=== PATIENT | female | born 1960 | race Asian ===

== ENCOUNTER 2019-06-18 23:20 | Emergency (ER) | payer MEDICAID ==
[~2019-06-18] VITALS: Ht 152.4 cm; Wt 49.4 kg
[2019-06-18 23:32] VITALS: Ht 152.4 cm; Wt 49.4 kg
[2019-06-19 00:17] LABS: CALCIUM 9.8 mg/dL (8.5-10.1); CARBON DIOXIDE 27.1 mmol/L (21-32); CREATININE SERUM 1.3 mg/dL (0.6-1.0); POTASSIUM SERUM 3.4 mmol/L (3.5-5.1)
[2019-06-19 00:21] LABS: ALBUMIN 4.6 g/dL (3.4-5.0); BILIRUBIN TOTAL 1.4 mg/dL (0.20-1.00)
[2019-06-19 00:24] LABS: TOTAL PROTEIN, SERUM 9.6 g/dL (6.4-8.2)
[2019-06-19 00:38] LABS: BASOPHIL % 0.2 % (0-2); PLATELET COUNT 216 x10^3mcL (130-400); RED CELL DISTRIBUTION WIDTH 12.4 % (11.5-14.5)
[2019-06-19 02:30] VITALS: BP 110/75
[2019-06-19] MEDS ORDERED: TENOFOVIR DISO300 MG PO (12:16)
== END 2019-06-19 02:30 | disposition home or self-care (01) ==
LOC: ED 23:20
DX: K29.70 Gastritis, unspecified, without bleeding (principal)
CPT/HCPCS: J2270; J2405; J7030; Q0092

== ENCOUNTER 2019-06-19 09:46 | Inpatient (IN) | payer MEDICAID ==
[~2019-06-19] VITALS: Ht 162.6 cm; Wt 49.4 kg
--- NOTE | 2019-06-19 10:15 | NUR ---
PT BIBA FROM HOME FOR C/O CONSTANT ABD PAIN. REPORTS SHE WAS SEEN HERE LAST NIGHT FOR SAME - NO CT SCAN WAS DONE BUT XR WAS DONE. PER PT SHE HAS HAD 4 DAYS OF ABD PAIN TO CENTER AREA DESCRIBING PAIN "BLOATED" FEELING. PT REPORTS CONSTANT N/V IN LAST [address] [facility] ONLY. SON IS AT BEDSIDE
[2019-06-19 10:24] LABS: CALCIUM 9.1 mg/dL (8.5-10.1); CARBON DIOXIDE 23.9 mmol/L (21-32); CREATININE SERUM 1.2 mg/dL (0.6-1.0); POTASSIUM SERUM 3.3 mmol/L (3.5-5.1)
[2019-06-19 10:31] LABS: RED CELL DISTRIBUTION WIDTH 12.4 % (11.5-14.5)
[2019-06-19 10:32] LABS: ALBUMIN 4.1 g/dL (3.4-5.0); BILIRUBIN TOTAL 1.19 mg/dL (0.20-1.00); CHOLESTEROL/HDL RATIO 3.8
[2019-06-19 10:37] LABS: PLATELET COUNT 221 x10^3mcL (130-400)
--- NOTE | 2019-06-19 10:37 | NUR ---
CHAPERONED DR JIANG FOR RECTAL EXAM
[2019-06-19 10:38] LABS: FREE T4 1.08 ng/dL (0.76-1.46); FREE THYROXINE INDEX 2.7 ug/dL (1.4-4.5); T4(THYROXINE) 8.3 ug/dL (4.7-13.3)
[2019-06-19 10:41] LABS: T3 TOTAL 0.71 ng/mL; TOTAL PROTEIN, SERUM 9.2 g/dL (6.4-8.2)
--- NOTE | 2019-06-19 11:49 | NUR ---
DR JIANG SPOKE WITH PT REGARDING TEST RESULTS AND POC OF ADMISSION FOR SMALL BOWEL OBSTRUCTION
[2019-06-19 12:10] LABS: BAND NEUTROPHIL 45 % (0-10); MONOCYTE 13 % (0-7); SEGMENTED NEUTROPHILS 20 % (37-75)
[2019-06-19 12:11] LABS: PLATELET MORPHOLOGY PLATELETS NORMAL; rbc morphology (normal/abnorm) NORMAL (NORMAL)
[2019-06-19] MEDS ORDERED: TENOFOVIR DISO300 MG PO (12:16)
[2019-06-19 12:31] LABS: MAGNESIUM 2.9 mg/dL (1.8-2.4); PHOSPHOROUS 5.8 mg/dL (2.5-4.9)
--- NOTE | 2019-06-19 12:53 | NUR ---
REPORT GIVEN TO INDRA SCHULZ
--- NOTE | 2019-06-19 14:00 | NUR ---
RECEIVED PT FROM ED VIA [facility], CAME IN DUE TO ABDOMINAL PAIN AND CONSTIPATION. AAOX4. DENIES HEADACHE/DIZZINESS. ABLE TO FOLLOW COMMANDS. NO SOB NOTED, LUNG SOUNDS CTA, O2 SAT=96%,RA. W/ LEFT NARE NGT ON LOW INTERMITTENT SUCTION, NOTED YELLOWISH/MILD BROWNISH OUTPUT. ABDOMEN IS MILDLY FIRM, BOWEL SOUNDS ACTIVE. LAST BM WAS 4 DAYS AGO. DENIES ABDOMINAL PAIN AT THIS TIME. VOIDS. RECEIVED PT FROM ED W/ LEVAQUIN ONGOING. IV SITE ON THE RFA IS PATENT AND INTACT. SIDE RAILS UPX2. CALL LIGHT ON REACH. PRIMARY NURSE BRIANNA AT BEDSIDE FOR CONTINUITY OF CARE
[2019-06-19 14:17] VITALS: BP 120/80
[2019-06-19 14:20] VITALS: Ht 162.6 cm; Wt 49.4 kg
--- NOTE | 2019-06-19 14:54 | NUR ---
58 Y/O ARRIVED FROM ER FOR SBO. ALERT ORIENTED. NGT CONNECTED TO LCS ORDERED WITH YELLOWISH WITH SOLID PARTICLES DRAINING. NS AT 100CC/HR INITIATED. SCD IN PLACE. ANJEL LU MADE AWARE OF LACTIC ACID OF 5. WILL CONTINUE TO MONITOR PATIENT.
[2019-06-19 17:28] VITALS: BP 117/76
--- NOTE | 2019-06-19 17:35 | NUR ---
NOTIFIED BY MT THAT TELEMETRY IS IN THE [address] PATIENT SEEN NOT IN ANY DISTRESS. DENIES ANY CHEST PAINS OR SHORTNESS OF BREATH. SEE VITAL SIGNS. HR NOW [address] ST.
[2019-06-19 17:36] VITALS: BP 120/72
--- NOTE | 2019-06-19 18:25 | NUR ---
ASSISTED OOB TO BATHROOM.DENIES ANY DISCOMFORT. NGT TO LCS DRAINED TOTAL OF 150CC YELLOWISH OUTPUT. NO NAUSEA. CALL LEA WITHIN REACH.
--- NOTE | 2019-06-19 18:42 | NUR ---
HR INCREASES TO 138 WALKING TO THE BATHROOM. DENIES ANY PALPITATION. BACK IN BED. HR NOW 119 . MD MACKAY MADE AWARE.
--- NOTE | 2019-06-19 19:40 | NUR ---
RECIEVED PT IN NO ACUTE DISTRESS. AWAKE/ALERT. MANDARIN SPEAKING. TELE #[id number], ST, HR 112. BREATHING E/U. NGT TO L NARE SET TO LOW CONTINUOUS SUCTION WITH YELLOW OUTPUT. BOWEL SOUNDS ACTIVE X 4. CURRENTLY NPO. ABD PAIN IS 4/10, PER MAGO. IV TO RFA, PATENT. BED IN LOWEST POSITION, 2 SIDE RAILS UP, CALL LIGHT IN REACH. INSTRUCTED TO CALL FOR ASSISTANCE.
[2019-06-19 21:15] VITALS: BP 123/85
--- NOTE | 2019-06-20 00:45 | NUR ---
RESTING IN BED WITH EYES CLOSED. BREATHING E/U. NO ACUTE DISTRESS NOTED. WILL CONTINUE TO MONITOR.
[2019-06-20 01:12] LABS: UA SPECIFIC GRAVITY 1.025 (1.005-1.035); microscopic required? YES; urine erythrocyte 2+ (NEGATIVE)
[2019-06-20 05:52] VITALS: BP 128/85
--- NOTE | 2019-06-20 06:38 | NUR ---
NO ACUTE DISTRESS NOTED. NGT TO L NARE SET TO LOW INTERMITTENT SUCTION. 550 ML YELLOW OUTPUT OVERNIGHT. NO C/O ABD PAIN/NAUSEA. WILL ENDORSE TO ONCOMING RN.
[2019-06-20 06:53] LABS: CARBON DIOXIDE 28.6 mmol/L (21-32); CHLORIDE SERUM 104 mmol/L (98-107); CREATININE SERUM 0.8 mg/dL (0.6-1.0); GFR1 > 60 mL/min; GLUCOSE SERUM 146 mg/dL (74-106); POTASSIUM SERUM 3.7 mmol/L (3.5-5.1); SODIUM SERUM 141 mmol/L (136-145)
--- NOTE | 2019-06-20 07:45 | NUR ---
PATIENT IS RESTING IN BED, NO ACUTE DISTRESS NOTED AT THIS TIME. FAMILY AT BEDSIDE. TELE MONITOR IN PLACE. LUNG SOUNDS CTA, ON ROOM AIR. NGT TO LOW INTERMITTENT SUCTION TO LEFT NARE. PATIENT IS AMBULATORY. NS IV INFUSING TO RFA AT 1000ML/HR, IV SITE CDI&PATENT, NO S/S OF INFILTRATION. CALL LIGHT WITHIN REACH, BED IN LOW POSITION, WILL CONTINUE TO MONITOR FOR CHANGES.
[2019-06-20 08:44] VITALS: BP 117/87
--- NOTE | 2019-06-20 10:45 | NUR ---
NGT TO LEFT NARE, ON LIS, 875ML OF DARK GREEN/BROWN OUTPUT NOTED, CANISTER WAS CHANGED AT THIS TIME. PATIENT DENIES PAIN. WILL CONTINUE TO MONITOR PATIENT.
[2019-06-20 11:35] LABS: BASOPHIL % 0.2 % (0-2); PLATELET COUNT 186 x10^3mcL (130-400); RED CELL DISTRIBUTION WIDTH 12.1 % (11.5-14.5)
[2019-06-20 14:01] VITALS: BP 125/83
--- NOTE | 2019-06-20 16:35 | NUR ---
PATIENT IS SLEEPING IN BED, NO ACUTE DISTRESS NOTED AT THIS TIME. PATIENT DENIES PAIN, NAUSEA, AND VOMITTING. ALL NEEDS MET AT THIS TIME. PATIENT AWAITING PHYSICIAN CONSULT. WILL CONTINUE TO MONITOR FOR CHANGES.
[2019-06-20 17:36] VITALS: BP 114/78
--- NOTE | 2019-06-20 18:29 | NUR ---
PATIENT RESTING IN BED, NO ACUTE CHANGES NOTED THROUGH OUT SHIFT, PATIENT IS STABLE. PATIENT DENIES N,V. DENIES PAIN AT THIS TIME. NGT TO LEFT NARE ON LOW INTERMITTENT SUCTION, 250ML OUTOUT NOTED AT THIS TIME. NS IV INFUSING TO RFA AT 100ML/HR, IV SITE CDI & PATENT, NO S/S OF INFILTRATION. CALL LIGHT WITHIN REACH, BED IN LOW POSITION. WILL CONTINUE TO MONITOR & ENDORSE TO NIGHT RN.
--- NOTE | 2019-06-20 20:03 | NUR ---
EYES CLOSED, AROUSABLE TO VERBAL STIMULUS, AAO X4 VERBAL, DENIES PAIN NO DISTRESS LUNGS CTA, NGT IN SITU LT NARES TO LOW INTERMITTENT SUCTION, WORKING WELL, GREENISH BROWN RETURNED, PT DENIES NAUSEA OR VOMITING, PT ADMITTED FOR SBO, NO BM DURING THIS ASSESSMENT, HYPOACTIVE BS X4 QUADS, IVF NS INFUSING @ 100CC/HR IV ACCESS @ RFA PATENT NON INFIL, SCD'S OFF AT THIS TIME PER PT'S REQUEST, SHIFT ASSESSMENT DONE, CALL LIGHT AT REACH, STILL WAITING FOR GI MD DR CONNOR FOR CONSULT, WILL CONT TO MONITOR.
[2019-06-20 21:20] VITALS: BP 119/79
--- NOTE | 2019-06-20 21:42 | NUR ---
PT C/O NAUSEA AND FELT BLOATED, RESOURCE NURSE UTILIZED FOR TRANSLATION, DENIES PAIN, NO DISTRESS, NGT INPLACED, ZOFRAN IVP GIVEN PER PRN ORDER, CONT TO MONITOR.
--- NOTE | 2019-06-20 22:32 | NUR ---
DR CONNOR GI CALLED UPDATED RESIDENT'S CONDITION, MD ORDERED STAT KUB AND A FOLLOW THROUGH IN AM WITH GASTROGRAFIN, ALSO WANTED PT TO LOW CONTINUOUS SUCTION, ALL TO/RB ORDERS CARRIED OUT, DR CONNOR WILL COME TONIGHT TO CHECK THE PT, THE SON CAME FOR VISIT, AND HE WILL WAIT FOR DR CONNOR.
--- NOTE | 2019-06-20 23:11 | NUR ---
DR CONNOR, SURGEON, CAME CHECKED AND EXAMINED THE PT, KUB DONE AT THE SAME TIME AND SURGEON LOOK UP THE RESULT, WILL DO ANOTHER KUB - UPPER GI WITH GASTROGRAFIN IN AM AND WILL DECIDE IF PT NEEDED A SURGERY, DR CONNOR SPOKE TO THE SON AND THE PATIENT, RESIDENT ON DUTY DR MACKAY AND DR JUAREZ AWARE OF THE PLAN DISCUSSED BY DR CONNOR RE PT'S STATUS.
[2019-06-21 06:04] LABS: BASOPHIL % 0.1 % (0-2); PLATELET COUNT 175 x10^3mcL (130-400); RED CELL DISTRIBUTION WIDTH 12.9 % (11.5-14.5)
--- NOTE | 2019-06-21 06:11 | NUR ---
SLEPT INTERMITTENT DURING THE SHIFT, NO NAUSEA OR VOMITING, DENIES PAIN, NGT TO LOW CONTINUOUS SUCTION PUTTING OUT 250CC FROM NGT, GREENISH BROWN COLOR, REMAINED NPO, AM ATB IV ADMINISTERED ORDERED, NO ADV REACTION, SCHED FOR UPPER GI SMALL BOWEL FOLLOW THROUGH THIS MORNING FOLLOWED UP C/O SUMMER, RADIOLOGIST WILL BE HERE BETWEEN 7 TO 7:30 AM, WILL ENDORSE TO INCOMING SHIFT FOR F/U CARE.
[2019-06-21 06:27] LABS: CALCIUM 8.3 mg/dL (8.5-10.1); CARBON DIOXIDE 25.8 mmol/L (21-32); CHLORIDE SERUM 109 mmol/L (98-107); CREATININE SERUM 0.7 mg/dL (0.6-1.0); GFR1 > 60 mL/min; GLUCOSE SERUM 118 mg/dL (74-106); POTASSIUM SERUM 3.3 mmol/L (3.5-5.1); SODIUM SERUM 146 mmol/L (136-145)
--- NOTE | 2019-06-21 08:04 | NUR ---
AT 0720 - RECEIVED PATIENT FROM NIGHT NURSE. AWAKE, ALERT AND APPEARS ORIENTED. FAMILY MEMBER AT BEDSIDE. RADIOLOGY STAFF HERE TO TAKE PATIENT FOR SB SERIES. IV SALINE LOCKED AND NG TUBE DISCONNECTED FROM SUCTION. PAIENT TAKEN TO RADIOLOGY.
[2019-06-21 09:24] VITALS: BP 134/88
--- NOTE | 2019-06-21 12:58 | NUR ---
AT 0900 - PATIENT BACK IN ROOM. PER MARINE PHOTOGRAPHER, PATIENT NOT TO BE CONNECTED TO SUCTION AT THIS TIME UNTIL ALL SERIES X-RAYS HAVE BEEN TAKEN. NEXT SCHEDULED X-RAY IS AT 0930 FOLLOWED BY ONE AT 1130. 40 MEQ K-RIDE COMMENCED. AT 1020 - PATIENT C/O NAUSEA. UNABLE TO CONNECT TO SUCTION AT THIS TIME. PATIENT MEDICATED WITH ZOFRAN PER EMAR. AT 1215 - - PATIENT CONTINUES TO HAVE NAUSEA AND IS SPITTING / VOMITING YELLOW BILARY FLUID. SPOKE WITH RADIOLOGY. PATIENT STIL NEED ANOTHER X-RAY AT 5 OR 6 HR ROLAND, DEPENDING ON RADIOLOGIST'S RECOMMENDATION. NG TUBE NEEDS TO REMAIN CLAMPED UNTIL ALL X-RAYS HAVE BEEN COMPLETED.
--- NOTE | 2019-06-21 13:14 | NUR ---
CALLED TO AND RELAYED THE RESULTS OF THE UGI W/ SBFT AND ASKED IF HE WANTS TO READ THE WHOLE REPORT AND WANTS ONLY THE IMPRESSION OF THE REPORT AND READ IT TO HIM. HE ORDERED TO UNCLAMPED NGT TO CONTINOUS SUCTION AND KUB AT 0600 TOMORROW.
--- NOTE | 2019-06-21 14:01 | NUR ---
AT 1315 - RECEIVED ORDER TO RESUME NG TUBE CONTINUOUS LOW SUCTION AND REPEAT KUB IN AM. BEV STEVENS SPOKE WITH DR CONNOR. AT 1335 - PATIENT HAD 450 DARK GREEN ASPIRATE WITHIN 20 MIN OF CONNECTIONG BACK TO SUCTION. AT 1345 - PATIENT SITTING IN CHAIR. REPORTS FEELING BETTER. NO FURTHER VOMITING. FAMILY AT BEDSIDE.
--- NOTE | 2019-06-21 15:19 | NUR ---
PATIENT CONTINUES TO HAVE LARGE AMOUNTS OF DARK GREEN ASPIRATE FROM NG TUBE. NO C/O NAUSEA SINCE TUBE RECONNECTED TO SUCTION. TOTAL OF 800 ML SINCE RESUMING SUCTION.
[2019-06-21 16:44] VITALS: BP 129/79
--- NOTE | 2019-06-21 18:18 | NUR ---
AWAKE, ALERT AND ORIENTED. VSS AND WNL. AFEBRILE. IV INFUSING NS AT 100 ML/HR. K-RIDER CLOSE TO COMPLETION. NO C/O PAIN. NO CAUSEA OR VOMITING AT THIS TIME. NG TUBE REMAINS ON LOW INTERMITTENT SUCTION WITH LARGE AMOUNTS OF DARK GREEN ASPIRATE = TOTAL OF 1700 ML THIS SHIFT. REMAINS NPO. AMBULATES TO BATHROOM WITH ASSISTANCE. FAMILY AT BEDSIDE. WILL ENDORSE CARE TO NIGHT NURSE.
--- NOTE | 2019-06-21 19:35 | NUR ---
RECIEVED PATIENT AT START OF SHIFT AWAKE AND ALERT, FAMILY AT BEDSIDE.MED-SURG PATIENT. NO SOB ON RA, LUNGS CTAB. NG TUBE IN PLACE CONTECTED TO CONTINUOUS LOW SUCTION DRAINING DARK GREEN FLUID. PATIENT DENIES NAUSEA. BS ARE ACTIVE IN ALL 4 QUADRANTS. ABDOMEN IS SOFT BUT DISTENDED. PATIENT HASNT HAD BM SINCE 06/17 (5 DAYS). IV TO RFA INFUSING WITHOUT ERYTHEMA OR INFILTRATION. BED LOCKED AND IN LOWETS POSIITON. CALL LIGHT WITHIN REACH.
[2019-06-21 20:17] VITALS: BP 123/75
--- NOTE | 2019-06-21 20:47 | NUR ---
PO MEDS HELD DUE TO NPO STATUS.
--- NOTE | 2019-06-22 04:08 | NUR ---
PATIENT REPORTED HAVING THREE SMALL BOWEL MOVEMENTS. PATIENT FLUSHED BM BEFORE VISUALIZATION. NG TUBE CONTINUES TO HAVE DARK GREEN DRAINAGE ON CONTINUOUS LOW SUCTION. IV INFUSING WELL WITHOUT ERYTHEMA OR INFILTRATION. CALL LIGHT WITHIN REACH.
[2019-06-22 05:49] VITALS: BP 126/76
--- NOTE | 2019-06-22 06:12 | NUR ---
PATIENT'S NG TUBE PUT OUT 300 MLS TOTAL OF DARK GREEN FLUID. PATIENT DENIES PAIN/NAUSEA. IV IS PATENT AND INTACT. BED LOCKED AND IN LOWEST POSIITON. CALL LIGHT AND BEDSIDE TABLE WITHIN REACH. WILL ENDORSE CARE TO MORNING NURSE.
--- NOTE | 2019-06-22 07:32 | NUR ---
PATIENT ALERT AND ORIENTED, ABLE TO MAKE NEEDS KNOWN AND FOLLOW COMMANDS. BREATHING E/U, LUNGS CTA, NGT TO LT NARE LOW CONT SUCTION, DARK GREEN OUTPUT. BOWEL SOUNDS HYPOACTIVE, ABD SOFT. NO COMPLAINTS OF PAIN AT THIS TIME. SKIN INTACT. PERIPHERAL PULSES PALPALBE, NO EDEMA. IV ACCESS TO RFA SITE WNL, NO REDNESS/SWELLING. CALL LIGHT WITHIN REACH.
--- NOTE | 2019-06-22 08:15 | NUR ---
SON NOW AT BEDSIDE, PATIENT SITTING UP ON CHAIR. PER SON PATIENT DENIES ABD PAIN OR NAUSEA AT THIS TIME. REPORTS HAD BM LAST NIGHT AND AGAIN THIS AM BEFORE XRAY KUB FOLLOW UP DONE. 3-4 SMALL SOLID STOOLS, DARKISH BROWN/BLACK. NGT IN PLACE, TAPE REINFORCED TO STABILIZE. WILL CONT TO MONITOR.
[2019-06-22 08:23] VITALS: BP 128/87
[2019-06-22 09:37] LABS: BASOPHIL % 0.1 % (0-2); PLATELET COUNT 206 x10^3mcL (130-400); RED CELL DISTRIBUTION WIDTH 12.8 % (11.5-14.5)
[2019-06-22 09:39] LABS: CARBON DIOXIDE 23.9 mmol/L (21-32); CHLORIDE SERUM 115 mmol/L (98-107); CREATININE SERUM 0.8 mg/dL (0.6-1.0); GFR1 > 60 mL/min; GLUCOSE SERUM 105 mg/dL (74-106); POTASSIUM SERUM 3.6 mmol/L (3.5-5.1); SODIUM SERUM 152 mmol/L (136-145)
--- NOTE | 2019-06-22 10:04 | NUR ---
DR CONNOR PAGED AND MADE AWARE OF XR KUB FOLLOW UP RESULT THIS MORNING. ALSO MADE HIM AWARE THAT PATIENT HAD 2 SMALL BOWEL MOVEMENTS PRIOR TO XRAY AND THAT OUTPUT ON NGT WAS 1700ML LAST NIGHT AND 300ML THIS MORNING. PER DR CONNOR, CONTINUE NGT LOW CONT SUCTIONING. CHARGE NURSE MADE AWARE.
--- NOTE | 2019-06-22 12:30 | NUR ---
OFFERED HYGEINE ASSISTANCE, SHOWER/CONDITIONER CAP PROVIDED AND CLEANSED/BRUSHED HAIR. NEW GOWN PROVIDED. PATIENT SITTING UP ON CHAIR NOW. NO SIGN OF ACUTE DISTRESS.
[2019-06-22 12:38] LABS: MAGNESIUM 2.4 mg/dL (1.8-2.4)
--- NOTE | 2019-06-22 14:40 | NUR ---
PATIENT AMBULATING IN HALLWAY ACCOMPANIED BY SON, NGT CLAMPED. AMB X2 LAPS. NO SIGN OF ACUTE DISTRESS.
[2019-06-22 17:04] VITALS: BP 104/59
--- NOTE | 2019-06-22 18:05 | NUR ---
PATIENT REPORTS BLOATING TO ABD, STATES PASSED GAS THIS AM BUT SLOWED DOWN, STATES BURPING OCCASIONALLY. ABD SOFT/DISTENDED. STATES MILD DISCOMFORT UPON DEEP PALPATION. NGT TO LT NARES IN PLACE, 550ML OUTPUT FOR DAY SHIFT, DARK GREEN, LOW CONTINUOUS SUCTIONING. HAD X2 BM'S TODAY SMALL SOLID STOOLS. NO RESP DISTRESS ON RA. IV SITE WNL. WILL CONT TO MONITOR AND ENDORSE TO NOC NURSE.
--- NOTE | 2019-06-22 19:20 | NUR ---
CHIQUIS MCKEON GAVE PATIENT ZOFRAN PER EMAR FOR NAUSEA.
--- NOTE | 2019-06-22 19:30 | NUR ---
PATIENT REPORTING BLOATING AND FULLNESS. ABDOMEN FEELS SOFT BUT DISTENDED. NG TUBE IS ON CONTINUOUS LOW SUCTION DRAINING GREEN OUTPUT. IV IS INFUSING WITHOUT ERYTHEMA OR INFILTRATION. PATIENT DENIES PAIN. NO SOB ON RA. CALL LIGHT WITHIN REACH.
[2019-06-22 20:29] VITALS: BP 122/75
--- NOTE | 2019-06-22 21:00 | NUR ---
2ND IV STARTED ON LEFT FOREARM, 20G FOR TPN ANDMINISTRATION.
--- NOTE | 2019-06-23 01:59 | NUR ---
PATIENT GIVEN ZOFRAN PER EMAR FOR NAUSEA. NG TUBE CONTINUES TO DRAIN GREEN FLUID. 300 OUT SO FAR THIS SHIFT. ABDOMEN REMAINS DISTENDED AND SOFT. BOTH IVS INFUSING WITHOUT ERYTHEMA OR INFILTRATION. CALL LIGHT WITHIN REACH.
--- NOTE | 2019-06-23 05:54 | NUR ---
PATIENT GIVEN ZOFRAN PER EMAR FOR NAUSEA. NG TUBE PRODUCED 580 MLS OF GREEN DRAINAGE THIS SHIFT ON LOW CONTINUOUS SUCTION. ABDOMEN REMAINS DISTENDED AND SOFT. BS ARE HYPOACTIVE THIS MORNING. BOTH IVS INFUSING WITHOUT ERYTHEMA OR INFILTRATION. BED LOCKED AND IN LOWEST POSIITION. CALL LIGHT WITHIN REACH.
[2019-06-23 06:05] VITALS: BP 119/79
--- NOTE | 2019-06-23 06:15 | NUR ---
WILL ENDORSE CARE TO DAYSHIFT NURSE.
[2019-06-23 06:49] LABS: BASOPHIL % 0.2 % (0-2); PLATELET COUNT 201 x10^3mcL (130-400); RED CELL DISTRIBUTION WIDTH 12.8 % (11.5-14.5)
[2019-06-23 07:04] LABS: CALCIUM 8.4 mg/dL (8.5-10.1); CARBON DIOXIDE 25.5 mmol/L (21-32); CHLORIDE SERUM 117 mmol/L (98-107); CREATININE SERUM 0.7 mg/dL (0.6-1.0); GFR1 > 60 mL/min; GLUCOSE SERUM 163 mg/dL (74-106); POTASSIUM SERUM 3.2 mmol/L (3.5-5.1); SODIUM SERUM 154 mmol/L (136-145)
[2019-06-23 07:22] LABS: MAGNESIUM 2.3 mg/dL (1.8-2.4); PHOSPHOROUS 2.9 mg/dL (2.5-4.9)
--- NOTE | 2019-06-23 07:35 | NUR ---
RECEIVED PT IN BED A/A/OX4 RESP EVEN AND UNLABORED WITH CLEAR BS BILAT. DENIES ANY CP/PRESSURE. NO EDEMA NOTED WITH IVF TO RFA NAD PPN TO LFA AT 35ML/HR. ABD SOFT, SLIGHTLY DISTENDED WITH +BS. PT PASSING GAS AND BURPING. NGT TO LT NARE WITH LOW CONT SUCTION WITH GREENISH BILE DRAINAGE. STRICT NPO. AMBULATORY AND VOIDING FREELY. CALL LIGHT IN REACH NEEDS ATTENDED TO.
[2019-06-23 07:42] VITALS: BP 132/78
--- NOTE | 2019-06-23 11:00 | NUR ---
CHECK IV SITES BOTHE PATENT WITH NO S/SX OF INFILTRATION.
--- NOTE | 2019-06-23 14:45 | NUR ---
PT C/O NAUSEA, MEDICATED WITH ZOFRAN IVP PER EMAR. CALL LIGHT IN REACH WITH CONT LOW SUCTION.
--- NOTE | 2019-06-23 16:20 | NUR ---
CHECKED IV SITES BOTH PATENT AND FREE OF S/SX OF INFILTRATION.
[2019-06-23 16:43] VITALS: BP 129/77
--- NOTE | 2019-06-23 18:10 | NUR ---
PT AMBULATED DOWN THE HALLWAY. TOLERATED ACTIVITY WELL. CALL LIGHT IN REACH NEEDS ATTENDED TO.
--- NOTE | 2019-06-23 19:45 | NUR ---
RECEIVED REPORT FROM AM NURSE. PT LAYING DOWN IN BED. PT AAOX4, CHINISE SPEACKING ONLY. FOLLOWS COMMANDS. ABLE TO MAKE NEEDS KNOWN. MED-SURG. DENIES CP/PRESSURE AT THIS TIME. PALPABLE PULSES TO ALL EXTREMITIES. NO EDEMA NOTED. LUNG SOUNDS CTA ON RA. BREATHING EVEN AND UNLABORED. NO ACUTE DISTRESS NOTED. ABD SOFT AND DISTENDED. STATED PASSING GAS. HYPOACTIVE BOWEL SOUNDS X4 QUAD. LAST BM 06/22/19. DENIES N/V AT THIS TIME. NGT TO LEFT NARE TO LOW CONT SUCTION, DRAINING GREEN FLUID. VOIDS FREELY BRP. GENERALIZED WEAKNESS. AMBULATORY. TPN RUNNING TO LFA AT 35ML/HR. SITE FREE FROM REDNESS AND SWELLING. D5 1/2 NS RUNNING TO RFA AT 40ML/HR. SITE FREE FROM REDNESS AND SWELLING. BED AT LOWEST SETTING. SIDE RAILS X2 UP. CALL LIGHT WITHING REACH. WILL CONTINUE TO MONITOR.
[2019-06-23 21:03] VITALS: BP 117/79
--- NOTE | 2019-06-23 22:30 | NUR ---
PT TEMP 99.8, AND C/O ABD PAIN 03/28. RECEIVED ORDER FOR TORADOL PRN. MEDICATED WITH TORADOL PRN PER JAN. WILL CONTINUE TO MONITOR.
--- NOTE | 2019-06-24 | NUR ---
REASSESSED TEMP. CURRENT TEMP 98.9. PT STATES RELIEF FROM PAIN. RATES PAIN 12/29. WILL CONTINUE TO MONITOR.
[2019-06-24 05:45] VITALS: BP 130/81
--- NOTE | 2019-06-24 06:27 | NUR ---
PT STAYED AWAKE MOST OF THE NIGHT. BREATHING EVEN AND UNLBORED. SHE CALLS TO NURSE ABOUT EVERY 1HR TO CHECK NGT. WANTS TO MAKE SURE ITS SUCTIONING. NO ACUTE DISTRESS NOTED. NG TO LEFT NARE TO LOW CONT SUCTION. DRAINING GREEN FLUID. TPN RUNNING TO LFA AT 45ML/HR. SITE FREE FROM REDNESS AND SWELLING. IV TO RFA RUNNING D5 1/2 NS AT 40ML/HR. SITE FREE FROM REDNESS AND SWELLING. BED AT LOWEST SETTING. SIDE RAILS X2 UP. CALL LIGHT WITHING REACH. WILL ENDORSE CARE TO AM NURSE.
[2019-06-24 06:46] LABS: BASOPHIL % 0.3 % (0-2); PLATELET COUNT 197 x10^3mcL (130-400)
[2019-06-24 07:06] LABS: CALCIUM 8.4 mg/dL (8.5-10.1); CARBON DIOXIDE 28.6 mmol/L (21-32); CHLORIDE SERUM 116 mmol/L (98-107); CREATININE SERUM 0.7 mg/dL (0.6-1.0); GFR1 > 60 mL/min; GLUCOSE SERUM 154 mg/dL (74-106); POTASSIUM SERUM 3.3 mmol/L (3.5-5.1); SODIUM SERUM 151 mmol/L (136-145)
--- NOTE | 2019-06-24 07:40 | NUR ---
RECEIVED PT IN BED A/A/OX4 DENIES ALLRED. RESP EVEN AND UNLABORED WITH CLEAR BS BILAT. DENIES ANY SOB/CP/PRESSURE AT THIS TIME. NO EDEMA NOTED. IV TO LFA WITH PPN AT 45ML/HR. ABD SOFT, DISTENDED WITH ACTIVE BS X4. DENIES ANY N/V AT THIS TIME. REPORTS SMALL BM YESTERDAY NONE TODAY. NGT TO LT NARE AT LOW CONT SUCTION WITH GENISH BILE ABOUT 200ML IN CANISTER THIS AM. PT IS NPO. AMBULATORY. INDIPENDENT OF B+B. CALL LIGHT IN REACH NEEDS ATTENDED TO.
[2019-06-24 08:19] VITALS: BP 122/83
[2019-06-24 08:25] LABS: MAGNESIUM 2.3 mg/dL (1.8-2.4); PHOSPHOROUS 3.3 mg/dL (2.5-4.9)
--- NOTE | 2019-06-24 10:11 | NUR ---
PHARMACIST HAD CALLED TO F/U ON PT'S STATUS MADE AWARE TO CONT TPN PT TO HAVE KUB THIS AM TO F/U ON SBO. PHARMACIST REQUEST TO COMFIRM THAT PROPERTY ASSISTANT WAS AWARE THAT TENOFOVIR HAS BEEN HELD D/T NPO STATUS. PROPERTY ASSISTANT MADE AWARE AND STATED SHE COULD NOT CHANGE STATUS AT THIS TIME AND ITS OK FOR MEDICATION TO BE HELD AT THIS TIME.
[2019-06-24 11:53] VITALS: BP 115/74
--- NOTE | 2019-06-24 15:00 | NUR ---
NOTED AREA ABOVE LFA IV SITE WITH PPN INFUSING WITH SLIGHT SWELLING. PT DENIED ANY DISCOMFORT TO AREA. PT PREVENT FURTHER IRRITATION TO SITE PPN WAS SWITCHED TO RFA IV SITE AND IVF PLACED ON LFA. PRIOR IV SITE WAS FLUSED AND PT REPORTED IRRITATION WITH INFUSING. IVF STOPPED AND IV WAS D/C'D. NEW IN INSERTED BY RESOURCE NURSE 20G TO RAC. IVF RESUMED AT THIS SITE. CONT TO MONITOR.
--- NOTE | 2019-06-24 15:15 | NUR ---
SKIN ASSESSMENT DONT TO PT. NO OPEN ACTIVE WOUND NOTED. PRIMARY RN NOTIFIED AND CONFIRMED THAT PT. SKIN IS CLEAR.
[2019-06-24 16:45] VITALS: BP 101/67
--- NOTE | 2019-06-24 17:25 | NUR ---
PT C/O ABD PAIN FROM DISTENSION. MEDICATED WITH TORADOL IVP ORDERED. WILL CONT TO MONITOR.
--- NOTE | 2019-06-24 18:39 | NUR ---
PT RESTING COMFORTABLY AT THIS TIME. REPORTED IMPROVEMENT WITH PAIN AND HAD LESS EPISODES OF NAUSE DURING THE SHIFT, WITH 700ML GRENISH BILE OUTPUT FROM NGT. PPN TO RFA SITE FREE OF ANY S/SX OF INFILTRATION. IVF TO RAC. CALL LIGHT IN REACH NEEDS ATTENDED TO.
--- NOTE | 2019-06-24 19:05 | NUR ---
RECEIVED PT FROM PREVIOUS SHIFT NURSE. PT AOX4, DENIES CP/PRESSURE. MED SURG PT, DENIES CP/PRESSURE. DENIES SOB/DIFFICULTY BREATHING, ON RA. BOWEL SOUNDS ACTIVE, DENIES ABD PAIN/DISCOMFORT AT THIS TIME. NG TUBE TO L. NARE CONNECTED TO LOW CONTINUOUS SUCTION. IV TO RAC, RFA INTACT AND PATENT. BED IN LOWEST POSITION. CALL LIGHT WITHIN REACH. WILL CONTINUE TO MONITOR.
[2019-06-24 20:14] VITALS: BP 115/71
--- NOTE | 2019-06-25 03:19 | NUR ---
PT RESTING IN BED. RR EVEN AND UNLABORED. IN NO ACUTE DISTRESS. CALL LIGHT WITHIN REACH. BED IN LOWEST POSITION. WILL CONTINUE TO MONITOR.
[2019-06-25 04:58] VITALS: BP 103/71
[2019-06-25 06:21] LABS: BASOPHIL % 0.1 % (0-2); PLATELET COUNT 201 x10^3mcL (130-400); RED CELL DISTRIBUTION WIDTH 12.9 % (11.5-14.5)
[2019-06-25 06:41] LABS: CALCIUM 8.6 mg/dL (8.5-10.1); CARBON DIOXIDE 25.1 mmol/L (21-32); CHLORIDE SERUM 111 mmol/L (98-107); CREATININE SERUM 0.6 mg/dL (0.6-1.0); GFR1 > 60 mL/min; GLUCOSE SERUM 123 mg/dL (74-106); MAGNESIUM 2.3 mg/dL (1.8-2.4); PHOSPHOROUS 3.7 mg/dL (2.5-4.9); POTASSIUM SERUM 3.5 mmol/L (3.5-5.1); SODIUM SERUM 147 mmol/L (136-145)
--- NOTE | 2019-06-25 07:15 | NUR ---
RECEIVED PATIENT FROM [facility] NURSE, PATIENT ALERT/ORIENTED, REQUESTING TO USE RESTROOM. NGT CLAMPED. PATIENT AMBULATES WITH STEADY GAIT TO RESTROOM. NO SIGN OF ACUTE DISTRESS, WILL CONT TO MONITOR/ASSESS.
--- NOTE | 2019-06-25 08:00 | NUR ---
SON AT BEDSIDE, A/OX4, ABLE TO MAKE NEEDS KNOWN, FOLLOW COMMANDS. DENIES HEADACHE OR CHEST PAIN. LUNGS CTA, NO RESP DISTRESS NOTED ON RA, BREATHING E/U. BOWEL SOUNDS ACTIVE TO UPPER LOBES, HYPO TO LOWER LOBES. ABD SOFT, DENIES NAUSEA, DENIES FEELING BLOATED AT THIS TIME. NGT IN PLACE TO LT NARES, LOW CONTINUOUS SUCTIONING, DARK GREEN OUTPUT. PERIPHERAL PULSES PALPABLE, NO EDEMA. SKIN INTACT. IV ACCESS SITES TO RAC RUNNING D5W AT 20ML/HR, AND RFA RUNNING TPN AT 55ML/HR, INFUSING WELL, SITES WNL. CALL LIGHT WITHIN REACH. WILL CONT TO MONITOR.
[2019-06-25 08:08] VITALS: BP 105/73
--- NOTE | 2019-06-25 13:45 | NUR ---
PATIENT REQUESTED FOR ASSISTANCE, FOUND IN BED WITH BM ACCIDENT/LEAK. PATIENT CLEANSED AND LINENS/GOWN CHANGED. SMALL LOOSE STOOL. 10 MINUTES LATER PATIENT AMBULATED TO RESTROOM TO HAVE ANOTHER BM. SMALL AMOUNT LOOSE/WATERY STOOL. DENIES DIARRHEA OR ABD DISCOMFORT. ABDOMEN SOFT AND NON-TENDER AT THIS TIME. NGT RESUMED TO LOW-CONT SUCTIONING. WILL CONT TO MONITOR.
--- NOTE | 2019-06-25 15:15 | NUR ---
Initial Nutrition Assessment: 241/A RAYMOND CHEN IA HR Dx: SBO PMHx: Hepatitis B PSHx: no significant Hx Labs: (06/25) NA 147H, BG 123H Meds: Colace, D 10%, D 5%, Flagyl, humulin, morphine, zofran, zosyn Diet: PPN @ 55ml/hr, D 12%, AA 3%, 20% intralipid (120 ml) PO Intake: NPO Ht: 162.56 cm (64") Wt: 49 kg (108#) BMI: 18.7 kg/m2 Bed scale: 49.2 kg IBW: 120# (55 kg) %IBW: 90 UBW: unable to access Age: 58/F Food Allergies: NKFA Skin: intact Flaco: 21 Edema: none GI: Last BM: 06/23 Per H&P, Pt is a 58-year-old Female who presents to the ED for evaluation of a 4 day history of diffuse, non-radiating, abdominal pain. RDN Visit (06/25): Patient did not speak Serbian. Per RN Lance, pt had 500cc output from NGT suction last night and currently had 700cc. KUB on (06/25) shows small bowel dilatation with no changes from previous KUB. Per progress note (06/24), Patient continues to have abdominal distention with with NGT to continuous suction with 900 cc out last night. Patient also continues on PPN dosed via pharmacy. FNS received wound care consult on 06/24, per wound care note, pt. does not have any open active wound. Problem with: N/V/D/C: no Problems with: Chewing/Swallowing: N/A Current appetite: N/A Recent wt change: none %wt change: N/A Vitamin/Supplement use: N/A Special diet at home: N/A Physical activity: N/A Nutrition education given: N/A as pt. on TPN. Food-drug interactions: NPO Education given: N/A Estimated Nutritional Needs Based on body weight 49 kg Energy: 4304-2616 kcal/d (25-30 kcal/kg) Protein: 49-59 g/d (1.0-1.2 g/kg) - preserve LBM Fluid: 0484-8036 ml/d (1 ml/kcal) or per doctor Nutrition Diagnosis 1. Inadequate parenteral nutrition infusion related to low infusion rate as evidenced by current rate not meeting estimated calorie and protein needs. Intervention 1. Recommend changing PPN to TPN in order to increasing concentration of dextrose and increase the rate while maintaining osmolality. Monitor/Evaluate Goal: TPN intake at least 75% of estimated needs Monitor: TPN intake, Labs, GI function F/U in 2-3 days as high risk 06/27-
--- NOTE | 2019-06-25 15:16 | NUR ---
1. Recommend changing PPN to TPN in order to increasing concentration of dextrose and increase the rate while maintaining osmolality.
[2019-06-25 16:34] VITALS: BP 104/70
--- NOTE | 2019-06-25 17:23 | NUR ---
PATIENT REPORTS HAVING ABOUT 20 BM'S, CURRENTLY ON THE PHONE LINE WITH SON. INFORMED SON THE SUPPOSITORY ORDERED BY TREER WAS NEVER GIVEN DUE TO PATIENT ALREADY STARTING TO HAVE BM'S. WHEN ASKED TO DESCRIBE STOOLS, PATIENT STATES SOMETIMES WATERY, OTHER TIMES SOLIDS, SOME AMOUNT A LITTLE MORE THAN OTHERS. DESCRIBED HAVING ABD DISCOMFORT BUT NOW HER STOMACH IS OKAY. TORADOL OFFERED, REFUSED. NGT TUBE SUCTIONING MINIMAL DARK GREEN AMOUNT AT THIS TIME. WILL CONT TO MONITOR.
--- NOTE | 2019-06-25 19:30 | NUR ---
REC'D PT FROM DAY NURSE. PT RESTING IN BED. AAOX4, SPEECH CLEAR, FOLLOWS COMMANDS. MED SURG, NO TELE. DENIES CP, DIZZINESS, OR PALPITATIONS. BREATHING EVEN/UNLABORED ON RA. NO EDEMA NOTED. L NARES NGT SECURED, LOW CONTINUOUS SUCTION. NO DRAINAGE TO TUBING NOTED. ABD SOFT/ROUND. REPORTS MILD PAIN BUT TOLERABLE AND DENIED PAIN MEDS. DENIES N/V. REPORTS HAVING BM X20 TODAY, LOOSE/DARK BROWN/BLACK. VOIDING FREELY. AMBULATORY. SKIN INTACT. IV X2 TO RFA PATENT AND INFUSING. SITES WNL. CALL LIGHT WITHIN REACH, BED AT LOWEST POSITION. WILL CONTINUE TO MONITOR.
[2019-06-25 20:49] VITALS: BP 108/69
--- NOTE | 2019-06-25 21:00 | NUR ---
PT C/O ABD PAIN 02/26. TORADOL GIVEN PER ORDER. WILL MONITOR FOR RELIEF.
--- NOTE | 2019-06-26 01:21 | NUR ---
PT RESTING IN BED WITH EYES CLOSED. LAYING ON R SIDE. NO SIGNS OF DISTRESS OR PAIN NOTED. BREATHING EVEN/UNLABORED ON RA. L NARES NGT TO LOW CONTINUOUS SUCTION, NO DRAINAGE NOTED. CALL LIGHT WITHIN REACH, BED AT LOWEST POSITION. WILL CONTINUE TO MONITOR.
--- NOTE | 2019-06-26 03:51 | NUR ---
PT UP TO VOID AND HAVE BM. REPORTS SMALL LOOSE BM. NGT TO L NARES RESECURED. LOW CONTINUOUS SUCTION, VERY MINIMAL GREEN OUTPUT. WILL CONTINUE TO MONITOR.
--- NOTE | 2019-06-26 05:30 | NUR ---
PT AWAKE AND RESTING IN BED. C/O ABD PAIN 03/28. TORADOL GIVEN PER ORDER. L NGT IN PLACE. MINIMAL GREEN OUTPUT: 3 ML. PT HAD BM X2 LAST NIGHT, LOOSE. BREATHING EVEN/UNLABORED ON RA. CALL LIGHT WITHIN REACH, BED AT LOWEST POSITION, WILL ENDORSE TO DAY NURSE.
[2019-06-26 06:13] VITALS: BP 104/67
[2019-06-26 06:46] LABS: BASOPHIL % 0.5 % (0-2); PLATELET COUNT 166 x10^3mcL (130-400); RED CELL DISTRIBUTION WIDTH 12.6 % (11.5-14.5)
[2019-06-26 07:20] LABS: CALCIUM 7.7 mg/dL (8.5-10.1); CARBON DIOXIDE 23.6 mmol/L (21-32); CHLORIDE SERUM 108 mmol/L (98-107); CREATININE SERUM 0.5 mg/dL (0.6-1.0); GFR1 > 60 mL/min; GLUCOSE SERUM 148 mg/dL (74-106); MAGNESIUM 2.1 mg/dL (1.8-2.4); PHOSPHOROUS 3.2 mg/dL (2.5-4.9); POTASSIUM SERUM 3.7 mmol/L (3.5-5.1); SODIUM SERUM 141 mmol/L (136-145)
--- NOTE | 2019-06-26 07:59 | NUR ---
AAO TIMES 4. NGT TO LEFT NARES WITH MINIMAL GREENISH COLORED GI CONTENTS, ON LOW CONTINUOUS SUCTION. BS'S HYPOACTIVE. TORRES STRONG. PERIPHEAL PULSES PALPABLE. NO EDEMA. NO C/O PAIN. COOPERATIVE. NO SOB.
[2019-06-26 09:24] VITALS: BP 104/68
--- NOTE | 2019-06-26 11:44 | NUR ---
DC'D NGT PER PEDIATRIC NP THORNTON ORDER, SHE SPOKE WITH DR CONNOR. PATIENT TOLERATED WELL.
[2019-06-26 17:42] VITALS: BP 104/62
--- NOTE | 2019-06-26 17:58 | NUR ---
AAO TIMES 4. MED SURG PATIENT. NO C/O PAIN. ATE ABOUT 25% OF CLEAR LIQUID LUNCH AND ALSO ABOUT 20% OF CLEAR LIQUID DINNER. SHE HAD ABD PAIN AND I GAVE HER TORADOL IVP AT 1612. IV SITE TO LFA AND RIGHT AC PATENT, CDI. TPN INFUSING AT 55 ML PER HOUR. NO C/O PAIN AT THIS TIME.
--- NOTE | 2019-06-26 19:20 | NUR ---
REC'D PT FROM DAY NURSE. PT RESTING IN BED. AAOX4, SPEECH CLEAR, FOLLOWS COMMANDS. MED SURG, NO TELE. DENIES CP, DIZZINESS, OR PALPITATIONS. DENIES RESP DISTRESS OR SOB. BREATHING EVEN/UNLABORED ON RA. ABD SOFT/ROUND. C/O PAIN AND TENDERNESS TO RUQ UPON PALAPATION. PAIN MILD AND TOLERABLE. DENIED MEDS. DENIES N/V. VOIDING FREELY. AMBULATORY. SKIN INTACT. IV TO RAC AND LFA PATENT AND INFUSING, SITES WNL. CALL LIGHT WITHIN REACH, BED AT LOWEST POSITION. WILL CONTINUE TO MONITOR.
[2019-06-26 20:50] VITALS: BP 106/56
--- NOTE | 2019-06-27 02:14 | NUR ---
PT RESTING IN BED WITH EYES CLOSED. LAYING ON R SIDE. NO SIGNS OF DISTRESS NOTED. BREATHING EVEN/UNLABORED ON RA. CALL LIGHT WITHIN REACH, BED AT LOWEST POSITION. WILL CONTINUE TO MONITOR.
--- NOTE | 2019-06-27 05:39 | NUR ---
PT AWAKE AND RESTING IN BED. REPORTS MILD PAIN TO ABD, TOLERABLE AND DENIED PAIN MEDS. BREATHING EVEN/UNLABORED ON RA. NO SIGNIFICANT CHANGES DURING SHIFT. PT HAD BM X1. CALL LIGHT WITHIN REACH, BED AT LOWEST POSITION. WILL ENDORSE TO DAY NURSE.
[2019-06-27 06:02] VITALS: BP 92/61
[2019-06-27 06:34] LABS: PLATELET COUNT 171 x10^3mcL (130-400); RED CELL DISTRIBUTION WIDTH 12.3 % (11.5-14.5)
--- NOTE | 2019-06-27 06:39 | NUR ---
PT SITTING ON THE CHAIR C/O 6/10 ABD PAIN. TORADOL GIVEN PER ORDER.
[2019-06-27 06:54] LABS: CARBON DIOXIDE 24.6 mmol/L (21-32); CHLORIDE SERUM 107 mmol/L (98-107); CREATININE SERUM 0.5 mg/dL (0.6-1.0); GFR1 > 60 mL/min; GLUCOSE SERUM 128 mg/dL (74-106); POTASSIUM SERUM 3.7 mmol/L (3.5-5.1); SODIUM SERUM 141 mmol/L (136-145)
--- NOTE | 2019-06-27 07:10 | NUR ---
RECEIVED PT FROM HEIDY RN. PT AA/OX4. NO S/S OF ACUTE DISTRESS. SPEAKS MANDARIN MOSTLY. DENIES ABD. PAIN AT THIS TIME, GIVEN TORODOL BY HEIDY RN. PT REPORTS IMPROVEMENT. RATES PAIN 0/10. NO CHEST PAIN. NO SOB ON ROOM AIR. IVS WNL TO LFA, AND RAC. IV FLUIDS FLOWING. TPN RUNNING AT 55ML/HR TO [facility]. SITE WNL. PT CALM/COOPERATIVE. BED IN LOW POSITION. CALL LIGHT WITHIN REACH. INSTRUCTED TO USE CALL LIGHT TO CALL FOR ASSISTANCE PRN. VERBALIZED UNDERSTANDING. WILL CONTINUE TO MONITOR.
[2019-06-27 08:08] VITALS: BP 115/77
[2019-06-27 08:44] LABS: BAND NEUTROPHIL 1 % (0-10); BASOPHIL 0 % (0-2); MONOCYTE 15 % (0-7); SEGMENTED NEUTROPHILS 44 % (37-75)
[2019-06-27 08:45] LABS: PLATELET MORPHOLOGY PLATELETS DECREASED; rbc morphology (normal/abnorm) ABNORMAL (NORMAL)
--- NOTE | 2019-06-27 11:00 | NUR ---
PT LAYING IN BED. AA/OX4. NO S/S OF ACUTE DISTRESS. NO SOB ON ROOM AIR. DENIES N/V. DENIES ABD. PAIN AT THIS TIME. CALM/COOPERATIVE. NO ALLRED. NO DIZZINESS. NO CHILLS NO FEVER. BED IN LOW POSITION. CALL LIGHT WITHIN REACH. FAMILY MEMBER AT BEDSIDE. TPN DISCONTINUED PER WINDOW SHADE CUTTER AND MOUNTER ORDER. WILL CONTINUE TO MONITOR.
--- NOTE | 2019-06-27 14:01 | NUR ---
PT SITTING UP IN CHAIR. NO ACUTE DISTRESS. NO C/O PAIN. REPORTED 4 LOOSE BM. IVF INFUSING, NO REDNESS OR SWELLING NOTED. CALL LIGHT WITHIN REACH. WILL CONTINUE TO MONITOR.
--- NOTE | 2019-06-27 15:05 | NUR ---
Follow-up Nutrition Assessment: (241-A) APRIL RAYMOND 58F Dx: SBO PMHx: Hep B Labs: BG 128 H, Cr 0.5 L, RBC 3.72 L, Hgb 11.5 L, HCT 33 L Meds: Colace, Humulin, Protonix, Zofran Diet: Clear Liquid PO Intake: 35% Weights: 109# (06/19) I/Os: 3250/1353 (06/26) 558/700 (06/25) 2124/2049 (06/24) 1999/1130 (06/23) Skin: Flaco: 21 Edema: none noted GI: abd soft/round/tender, c/o tenderness and pain RUQ upon palpation, pain mild and tolerable, BS active, reports BM x6 06/26, loose Last BM: 06/26 RD Note (06/27): Noted NG tube D/C yesterday. Per bed huddles, COOLER MAN Cecilia considering advancing pt's diet to full liquids. evidence specialist noted noactive wound noted, skin is clear. Visited pt bedside, pt's son present and translated for me r/t pt does not speak Slovak. Noted pt's PPN D/C'd and on full liquid diet at this time. Son states pt eats everything she has received so far, but has stomachache sometimes in the morning and at night. Son also states pt becomes bloated after walking around the unit after breakfast. Per recent COOLER MAN progress note, pt's SBO is resolving, but now w/ ileus and vasomotor nephropathy. All questions/concerns addressed and answered. Will continue to monitor pt's PO and labs. Estimated Nutritional Needs Based on current body weight (49 kg) Energy: 7185-0557 kcal/day (35-40 kcal/kg for underweight/wt gain) Protein: 59-74 g/day (1.2-1.5 g/kg for wt gain, preserve LBM) Fluid: 3932-6583 mL/day (1 mL/kcal) or per Nutrition Diagnosis: 06/25: Inadequate parenteral nutrition infusion related to low infusion rate as evidenced by currnt rate not meeting estimated calorie and protein needs. 06/27: Underweight r/t poor PO intake and parenterl nutrition infusion AEB BMI 18.7 Intervention: 1. Continue current Full Liquid diet, advance per MD/COOLER MAN and as pt tolerates 2. Add Glucerna BID b/w meals 3. Spoke w/ COOLER MAN regarding recommendation(s), confirmed. Monitor/Evaluate: Goal: Have pt meet at least 75% of estimated needs Monitor: PO intake, Labs, GI function F/U in 2-3 days as high risk 06/29-06/30
--- NOTE | 2019-06-27 15:06 | NUR ---
Recommendations: 1. Continue current Full Liquid diet, advance per MD/PRESSER COTTON GINNING and as pt tolerates 2. Add Glucerna BID b/w meals 3. Spoke w/ PRESSER COTTON GINNING regarding recommendation(s), confirmed.
[2019-06-27 16:19] VITALS: BP 99/62
--- NOTE | 2019-06-27 18:47 | NUR ---
PT SITTING UP ON THE SIDE OF THE BED. NO ACUTE DISTRESS. AAOX4. RESP EVEN AND UNLABORED ON RA. IVF INFUSING, NO REDNESS OR SWELLING NOTED TO IV SITE. REPORTS LOOSE STOOL. TOLERATING FULL LIQUID DIET. BED IN LOW POSITION, CALL LIGHT WITHIN REACH. WILL ENDORSE TO ONCOMING SHIFT.
--- NOTE | 2019-06-27 19:36 | NUR ---
RECEIVED PT FROM PREVIOUS SHIFT. PT A/OX4. DENIES PAIN. DENIES SOB ON RA. IV PATENT AND INFUSING D5W AT 20ML/HR WITH NO S/S OF INFILTRATION. CALL LIGHT WITHIN REACH, BED IN LOW POSITION. WILL CONTINUE TO MONITOR.
[2019-06-27 20:54] VITALS: BP 104/62
--- NOTE | 2019-06-28 02:40 | NUR ---
PT RESTING IN NO ACUTE DISTRESS. RR EVEN AND UNLABORED. IV PATENT. CALL LIGHT WITHIN REACH, BED IN LOW POSITION. WILL CONTINUE TO MONITOR.
--- NOTE | 2019-06-28 05:41 | NUR ---
NO ACUTE CHANGES THROUGHOUT SHIFT. PT DENIES PAIN. DENIES SOB ON RA. WILL ENDORSE CARE TO ONCOMING SHIFT
[2019-06-28 06:15] VITALS: BP 100/65
[2019-06-28 06:57] LABS: BASOPHIL % 0.3 % (0-2); PLATELET COUNT 171 x10^3mcL (130-400); RED CELL DISTRIBUTION WIDTH 12.6 % (11.5-14.5)
--- NOTE | 2019-06-28 07:10 | NUR ---
SEEN IN BED AAOX4. BREATHING E/U ON ROOM AIR. DENIES PAIN OR NAUSEA. STATED HAD BM X3 LAST NIGHT. ON FULL LIQUID DIET. BRP. IVF D5W AT 20ML/HR INFUSING WELL. CALL LIGHT PLACED WITHIN EASY REACH. SIDERAILS UP X2.
[2019-06-28 07:17] LABS: CALCIUM 8.4 mg/dL (8.5-10.1); CARBON DIOXIDE 22.4 mmol/L (21-32); CHLORIDE SERUM 109 mmol/L (98-107); CREATININE SERUM 0.5 mg/dL (0.6-1.0); GFR1 > 60 mL/min; GLUCOSE SERUM 104 mg/dL (74-106); POTASSIUM SERUM 3.9 mmol/L (3.5-5.1); SODIUM SERUM 142 mmol/L (136-145)
[2019-06-28 08:09] VITALS: BP 94/52
--- NOTE | 2019-06-28 09:00 | NUR ---
TOLERATED TO FULL LIQUID DIET WELL. DENIES NAUSEA OR ABDN PAIN. HAD ONE LOOSE BM. DIAL MAKER HERMILA MADE AWARE.
--- NOTE | 2019-06-28 10:00 | NUR ---
SEEN WALKING BACK FROM THE HALLWAY. NO ANY DISTRESS NOTED. REGULAR DIET FOR LUNCH INFORMED. PATIENT MADE AWARE.
[2019-06-28 11:56] VITALS: BP 95/61
--- NOTE | 2019-06-28 15:42 | NUR ---
PATIENT'S SON AT BEDSIDE. UPDATED CURRENT CONDITION AND PLAN OF CARE.
[2019-06-28 16:45] VITALS: BP 106/58
--- NOTE | 2019-06-28 18:54 | NUR ---
TOLERATED TO REGULAR DIET WELL. DENIES PAIN OR NAUSEA. AMBULATORY WITH STEADY GAIT. ALL DUE MEDS GIVEN.
--- NOTE | 2019-06-28 19:37 | NUR ---
RECEIVED PT FROM PREVIOUS SHIFT. PT A/OX4. DENIES PAIN. DENIES SOB ON RA. PT AMBULATING AT THIS TIME. IV PATENT AND INFUSING WELL WITH NO S/S OF INFILTRATION. WILL CONTINUE TO MONITOR.
[2019-06-28 20:47] VITALS: BP 106/67
--- NOTE | 2019-06-29 00:15 | NUR ---
PT RESTING IN NO ACUTE DISTRESS. RR EVEN AND UNLABORED. CALL LIGHT WITHIN REACH, BED IN LOW POSITION. WILL CONTINUE TO MONITOR.
[2019-06-29 06:05] VITALS: BP 108/68
[2019-06-29 06:29] LABS: CALCIUM 8.7 mg/dL (8.5-10.1); CARBON DIOXIDE 25.1 mmol/L (21-32); CHLORIDE SERUM 108 mmol/L (98-107); CREATININE SERUM 0.6 mg/dL (0.6-1.0); GFR1 > 60 mL/min; GLUCOSE SERUM 107 mg/dL (74-106); POTASSIUM SERUM 3.9 mmol/L (3.5-5.1); SODIUM SERUM 143 mmol/L (136-145)
--- NOTE | 2019-06-29 07:10 | NUR ---
SEEN IN BED AAOX4. NO RESP DISTRESS NOTED. ABDN SOFT AND FLAT. ON REGULAR DIET. BRP. IVF D5W AT 20ML/HR INFUSING WELL. CALL LIGHT PLACED WITHIN EASY REACH. SIDERAILS UP X2.
[2019-06-29 07:14] LABS: BASOPHIL % 0.4 % (0-2); PLATELET COUNT 203 x10^3mcL (130-400); RED CELL DISTRIBUTION WIDTH 12.6 % (11.5-14.5)
[2019-06-29 08:07] VITALS: BP 103/60
--- NOTE | 2019-06-29 10:30 | NUR ---
PATIENT HAD A SMALL( GRAPE SIZE) SOFT BM NOTED. STATED HAVING MILD ABDOMINAL PAIN. WILL CONTINUE TO MONITOR. ENCOURAGED TO AMBULATE MORE.
[2019-06-29 11:52] VITALS: BP 99/60
--- NOTE | 2019-06-29 13:23 | NUR ---
COMPLAINTS OF PAIN TO MID UPPER ABDOMEN STATED 5/10 ON PAIN SCALE. DENIES NAUSEA. TORADOL 15MG IVP SLOWLY GIVEN FOR PAIN. WILL CONTINUE TO MONITOR.
--- NOTE | 2019-06-29 14:30 | NUR ---
PATIENT AND PATIENT'S SON MADE AWARE OF CURRENT CONDITION AND PLAN OF CARE.
[2019-06-29 16:39] VITALS: BP 108/65
--- NOTE | 2019-06-29 17:22 | NUR ---
NO ANY DISTRESS THROUGHOUT SHIFT. STATED HAD 3 BM TODAY LOOSE. TORADOL IV GIVEN X1 FOR ABDOMINAL PAIN WITH GOOD RELIEF. DENIES NAUSEA. TOLERATED TO REGULAR DIET. AMBULATORY WELL THR BATHROOM AND ON THE HALLWAY. ALL DUE MEDS GIVEN. IVF D5W AT 20ML/HR CONTINUED.
--- NOTE | 2019-06-29 19:36 | NUR ---
RECEIVED PT FROM PREVIOUS SHIFT. PT A/OX4. DENIES PAIN. DENIES SOB ON RA. IV PATENT AND INFUSING WELL WITH NO S/S OF INFILTRATION. CALL LIGHT WITHIN REACH, BED IN LOW POSITION. WILL CONTINUE TO MONITOR.
[2019-06-29 21:26] VITALS: BP 96/63
--- NOTE | 2019-06-30 00:22 | NUR ---
PT RESTING IN NO ACUTE DISTRESS. RR EVEN AND UNLABORED. CALL LIGHT WITHIN REACH, BED IN LOW POSITION. WILL CONTINUE TO MONITOR.
[2019-06-30 06:14] VITALS: BP 112/66
[2019-06-30 08:11] VITALS: BP 100/68
--- NOTE | 2019-06-30 08:12 | NUR ---
AT 0730 - RECEIVED PATIENT FROM NIGHT NURSE. AWAKE ALERT AND APPEARS ORIENTED. SITTING IN CHAIR. IV AT 20 ML/HR OF D5W. PATIENT PLACED ON NPO PER CHARGE NURSE INSTRUCTION - NEEDS TO BE SEEN BY DR JIMENEZ ( SURGERY). SPOKE WITH PATIENT'S SON PER [place] - PATIENT CALLED HIM FOR TRANSLATION. EXPLAINED TO HIM CURRENT PLAN OF CARE.
--- NOTE | 2019-06-30 10:00 | NUR ---
PATIENT'S SON AT BEDSIDE. SPOKE WITH HIM ABOUT PLAN OF CARE AND AWAITING TO BE SEEN BY SURGEON.
--- NOTE | 2019-06-30 14:35 | NUR ---
PATIENT HAS AMBULATED IN HALLWAY. REMAINS NPO. AWAITING TO BE SEEN BY DR JIMENEZ.
--- NOTE | 2019-06-30 16:13 | NUR ---
SPOKE WITH PATIENT AND SON (PER PHONE). PATIENT WAS ASKING ABOUT EATING. SHE HAS BEEN NPO ALL DAY. EXPLAINED TO PATIENT AND SON THAT PT IS NPO , WAITING TO BE SEEN BY SURGEON. SPOKE WITH CHARGE NURSE, HILDA, WHO WAS CONTACTING NURSE PRACTITIONER NISHANT - PATIENT STIL NEEDS TO BE SEEN BY DR JIMENEZ AND MUST STAY NPO AT THIS TIME.
[2019-06-30 16:44] VITALS: BP 105/69
--- NOTE | 2019-06-30 18:19 | NUR ---
AT 1730 - DR JIMENEZ ON UNIT. HE SAID THAT HE WILL NOT SEE PATIENT. CHARGE NURSE CONTACTED CAR [employer]OP AND RECEIVED ORDER FOR PATIENT TO RESUME REGULAR DIET. AT 1815 - SPOKE WITH PATIENT AND SON (PER PHONE). EXPLAINED TO THEM THAT PATIENT MAY EAT AND THAT A DIFFERENT SURGEON WILL LIKELY BE SEEING PATIENT TOMORROW. IV INFUSION OF D5 REMAINS AT 70 ML/HR. PATIENT HAS NOT C/O PAIN. VSS. AFEBRILE. AMBULATORY. SITS IN CHAIR. REPORTS 2 BOWEL MOVEMENTS TODAY. WILL ENDORSE CARE TO NIGHT NURSE.
--- NOTE | 2019-06-30 19:15 | NUR ---
REPORT RECEIVED FROM DAY SHIFT RN. PATIENT WAS SEEN AND IS RESTING COMFORTABLY IN BED. NO DISTRESS NOTED. BREATHING EVEN AND UNLABORED ON ROOM AIR. NO SOB OR RESP DISTRESS NOTED. DENIES CHEST PAIN/PRESSURE. NO C/O PAIN. IV TO THE RAC AND LFA. LFA INFUSING WELL. RAC SALINE LOCK. BOTH IVS PATENT AND INTACT. NO REDNESS OR SWELLING NOTED. COMFORT AND SAFETY MEASURES IN PLACE. BED IS LOCKED AND IN THE LOWEST POSITION. SIDE RAILS UP X2. CALL LIGHT IS WITHIN REACH. WILL CONTINUE TO MONITOR.
[2019-06-30 20:40] VITALS: BP 105/66
--- NOTE | 2019-07-01 00:45 | NUR ---
RESTING IN BED. DENIES PAIN. BREATHING EVEN AND UNLABORED ON ROOM AIR. NO DISTRESS NOTED. IVF INFUSING WELL. SAFETY MEASURES IN PLACE. CALL LIGHT IS WITHIN REACH. WILL CONTINUE TO MONITOR.
--- NOTE | 2019-07-01 03:11 | NUR ---
PATIENT IS RESTING IN BED WITH EYES CLOSED. NO DISTRESS NOTED. BREATHING EVEN AND UNLABORED ON ROOM AIR. NO S/S OF PAIN NOTED. IV INFUSING WELL TO LFA. SAFETY MEASURES IN PLACE. CALL LIGHT IS WITHIN REACH. WILL CONTINUE TO MONITOR.
[2019-07-01 05:10] VITALS: BP 101/62
[2019-07-01 06:27] LABS: BASOPHIL % 0.5 % (0-2); PLATELET COUNT 216 x10^3mcL (130-400); RED CELL DISTRIBUTION WIDTH 12.6 % (11.5-14.5)
--- NOTE | 2019-07-01 06:29 | NUR ---
PATIENT RESTED IN LONG INTERVALS THROUGHOUT THE NIGHT. NO ACUTE CHANGES NOTED. BREATHING EVEN AND UNLABORED ON ROOM AIR. NO DISTRESS NOTED. IV TO THE LFA INFUSING WELL. RAC SALINE LOCK. BOTH PATENT AND INTACT. NO C/O PAIN THROUGHOUT THE NIGHT. DENIES CHEST PAIN. LOOSE BM X2. COMFORT AND SAFETY MEASURES IN PLACE. ALL NEEDS AND CONCERNS ADDRESSED. CALL LIGHT IS WITHIN REACH. WILL ENDORSE CARE TO DAY SHIFT RN
[2019-07-01 06:35] LABS: CALCIUM 8.7 mg/dL (8.5-10.1); CARBON DIOXIDE 26.3 mmol/L (21-32); CHLORIDE SERUM 107 mmol/L (98-107); CREATININE SERUM 0.6 mg/dL (0.6-1.0); GFR1 > 60 mL/min; GLUCOSE SERUM 99 mg/dL (74-106); POTASSIUM SERUM 3.8 mmol/L (3.5-5.1); SODIUM SERUM 141 mmol/L (136-145)
--- NOTE | 2019-07-01 07:00 | NUR ---
RECEIVED REPORT FROM IVAN CRISOSTOMO RN, PT IN NO ACUTE RESP DISTRESS
--- NOTE | 2019-07-01 07:20 | NUR ---
PT IN CHAIR, IN NO ACUTE RESP DISTRESS, NO FACIAL DROOP/SLURRED SPEECH, PERRLA, VERBAL, NO REDNESS/DRAINGE, RESP EVEN AND NON-LABORED, CHEST RISE SYMMETRICALLY, MEDSURG, ABD SOFT AND NON-TENDER TO TOUCH, BS ACTIVE X 4, AMBULATORY, CONTINENT, BRP, PALP PULSES, CAP REFILL < 2 SECS, SKIN W.D.C, DENIED PAIN/DISCOMFORT/PRESSURE, DENIED N/V/D/DISSINESS, IV PATENT AND INFUSING WELL, ALL NEEDS ADDRESSED AT THIS TIME, SAFETY PROTOCOL FOLLOWED, CONTINUE TO MONITOR
[2019-07-01 08:46] VITALS: BP 94/61
--- NOTE | 2019-07-01 09:37 | NUR ---
PT IN NO ACUTE RESP DISTRESS, AM MED GIVEN PER MD ORDERED VIA EMAR, TAKEN WELL, NO ASE NOTED AT THIS TIME, SAFETY MONITOR, CONTINUE TO MONITOR
--- NOTE | 2019-07-01 09:57 | NUR ---
RADIATION DEP. CALLED AND REPOTED PT CRUZITO HAVE XR TO ABD AT APPROXIMATELY 4PM, PT WILL BE NPO AT LUNCH, PT MADE AWARE, VERBALLY UNDERSTANDING, NURSING STAFF AWARE, CHARGE NURSE HILDA MADE AWARE, CONTINUE TO MONITOR
--- NOTE | 2019-07-01 12:56 | NUR ---
PT RESTING IN BED, IN NO ACUTE RESP DISTRESS, FAMILY AT BEDSIDE, SAFETY MONITOR, CONTINUE TO MONITOR
--- NOTE | 2019-07-01 14:16 | NUR ---
PT SLEEPING IN BED, IN NO APPARENT DISTRESS, SAFETY PROTOCOL FOLLOWED, CONTINUE TO MONITOR
--- NOTE | 2019-07-01 16:45 | NUR ---
KUB AND ABD XR FOLLOW THROUGH DONE AT BEDSIDE, PT TOLLERATED WELL, NO ASE NOTED AT THIS TIME, CONTINUE TO MONITOR
[2019-07-01 16:55] VITALS: BP 102/66
--- NOTE | 2019-07-01 18:18 | NUR ---
PT SITTING IN CHAIR, IN NO ACUTE REPS DISTRESS, VERBAL, DENIED PAIN/CP/DISCOMFORT, DENIED N/V/D, RESP EVEN AND NON-LABORED, CHEST RISE SYMMETRICALLY, ABD SOFT AND NON-TENDERED TO TOUCH, AMBULATORY, CONTINENT, IV PATENT AND INFUSING WELL, ALL NEEDS ADDRESSED AT THIS TIME, SAFETY PROTOCOL FOLLOWED, WILL ENDORSE TO ONCOMING RN
--- NOTE | 2019-07-01 19:25 | NUR ---
RECEIVED PT IN BED SITTING ON THE CHAIR.AAOX4. NO DISTRESS NOTED.DENIES ANY PAIN OR DISCOMFORT AT THIS TIME. IV SITE PATENT AND INTACT. BED IN LOWEST POSITION,CALL LIGHT WITHIN REACH. WILL CONTINUE TO MONITOR.
[2019-07-01 20:27] VITALS: BP 104/70
--- NOTE | 2019-07-02 04:59 | NUR ---
PT REMAINED ASLEEP. NO DISTRESS NOTED. DENIES ANY PAIN AT THIS TIME. BED IN LOWEST POSITION,CALL LIGHT WITHIN REACH. WILL CONTINUE TO MONITOR.
[2019-07-02 05:34] VITALS: BP 97/53
[2019-07-02 06:09] LABS: BASOPHIL % 0.5 % (0-2); PLATELET COUNT 232 x10^3mcL (130-400); RED CELL DISTRIBUTION WIDTH 12.8 % (11.5-14.5)
[2019-07-02 06:25] LABS: CARBON DIOXIDE 24.5 mmol/L (21-32); CHLORIDE SERUM 103 mmol/L (98-107); CREATININE SERUM 0.6 mg/dL (0.6-1.0); GFR1 > 60 mL/min; GLUCOSE SERUM 107 mg/dL (74-106); POTASSIUM SERUM 3.7 mmol/L (3.5-5.1); SODIUM SERUM 139 mmol/L (136-145)
--- NOTE | 2019-07-02 07:28 | NUR ---
CARE ENDORSED TO DAY NURSE BONILLA.
--- NOTE | 2019-07-02 07:40 | NUR ---
RECEIVED PT IN NO ACUTE DISTRESS. AAOX4. RESP EVEN AND UNLABORED ON RA. NPO FOR KUB. PT REPORTS 2 WATERY STOOLS THIS AM. IV TO RAC AND IVF INFUSING TO LFA, NO REDNESS OR SWELLING. AMBULATORY. BED IN LOW POSITION, CALL LIGHT WITHIN REACH. WILL CONTINUE TO MONITOR.
--- NOTE | 2019-07-02 08:03 | NUR ---
PT C/O PAIN TO LFA IV SITE, DC'D WITH CATHETER INTACT. IV TO RAC FLUSHED WITH NS AND WITH GOOD BLOOD RETURN. WILL CONTINUE TO MONITOR.
[2019-07-02 08:09] VITALS: BP 108/64
--- NOTE | 2019-07-02 10:06 | NUR ---
IV TO RAC LEAKING, DC'D WITH CATHETER INTACT BY OR NURSE INMAN. NEW IV STARTED ON L WRIST 20G, FLUSHED WITH 10 ML NS.
--- NOTE | 2019-07-02 10:11 | NUR ---
PT WENT DOWN TO OR IN NO ACUTE DISTRESS.
[2019-07-02 13:20] VITALS: BP 107/67
--- NOTE | 2019-07-02 13:20 | NUR ---
PT BACK FROM OR. AWAKE, SLIGHTLY DROWSY. RESP EVEN AND UNLABORED ON RA. STATES SURGICAL SITE PAIN IS 1/10. ABDOMINAL SURGICAL DRESSING IN PLACE WITH ABDOMINAL BINDER, C/D/I. IV TO L WRIST, NO REDNESS OR SWELLING NOTED. HOB SLIGHTLY ELEVATED. FAMILY AT BEDSIDE. BED IN LOW POSITION, CALL LIGHT WITHIN REACH. WILL CONTINUE TO MONITOR.
--- NOTE | 2019-07-02 13:20 | NUR ---
Follow-up Nutrition Assessment: 241/A RAYMOND CHEN IA HR Dx: SBO PMHx: no significant Hx Labs: (07/02) BG 107H, WBC 3.0L, HGB 11.9L Meds: Colace, D 5%, zofran, zosyn Diet: NPO for KUB, (06/30-): regular diet PO Intake: (06/30) dinner 60%, (06/29) breakfast 30%, lunch 40%, dinner 70% Weights: (06/19) 109#, (07/02) N/A as pt was not in the room Skin: intact Flaco: 21 I/Os: (07/02) 2320/550 (1770) Edema: none GI: 2x watery stool Last BM: 07/02 RDN Visit (07/02): Patient was not in the room due to ex-lap surgery. Per progress note (07/02) Small bowel follow through indicates SBO. Patient was examined and patient going to surgery today for ex- lap with . Estimated Nutritional Needs Based on body weight 49 kg Energy: 8223-4796 kcal/d (25-30 kcal/kg) Protein: 49-59 g/d (1.0-1.2 g/kg) - preserve LBM Fluid: 8833-5461 ml/d (1 ml/kcal) or per doctor Nutrition Diagnosis 1. Inadequate oral intake related to SBO, mild ileus as evidenced by documented PO <75%, Pt. being NPO for procedures. 2. Altered GI function related to SBO as evidenced by KUB showing mild ileus, pt. undergoing ex-lap. Intervention 1. Recommend clear liquid diet post-surgery if medically appropriate/ tolerated. 2. Recommend progressing to regular diet once tolerated. Monitor/Evaluate Goal: Have pt meet at least 75% of estimated needs Monitor: PO intake, Labs, GI function F/U in 2-3 days as high risk 07/04-
--- NOTE | 2019-07-02 13:21 | NUR ---
1. Recommend clear liquid diet post-surgery if medically appropriate/ tolerated. 2. Recommend progressing to regular diet once tolerated.
--- NOTE | 2019-07-02 16:18 | NUR ---
NGT INSERTED TO L NARE. PT TOLERATED WELL. PENDING KUB TO VERIFY PLACEMENT. WILL CONTINUE TO MONITOR.
[2019-07-02 16:21] VITALS: BP 100/64
--- NOTE | 2019-07-02 16:41 | NUR ---
PT GETTING KUB DONE AT THIS TIME.
--- NOTE | 2019-07-02 17:41 | NUR ---
NGT PLACEMENT VERIFIED WITH KUB. PT CONNECTED TO LOW INTERMITTENT SUCTION ORDERED.
--- NOTE | 2019-07-02 18:42 | NUR ---
PT RESTING IN BED. NO ACUTE DISTRESS. AAOX4. RESP EVEN AND UNLABORED ON RA. NGT TO L NARE ON LOW INTERMITTENT SUCTION, NO OUTPUT NOTED AT THIS TIME. PT REPORTS NO GAS OR BM, DR. FRANZ AWARE. IVF INFUSING, NO REDNESS OR SWELLING AT IV SITE. DRESSING TO ABD C/D/I, ABDOMINAL BINDER IN PLACE. HOB ELEVATED. BED IN LOW POSITION, CALL LIGHT WITHIN REACH. WILL ENDORSE TO ONCOMING SHIFT.
--- NOTE | 2019-07-02 19:05 | NUR ---
RECEIVED PT FROM PREVIOUS SHIFT NURSE. PT AOX4, DENIES ALLRED/DIZZINESS. MED SURG PT, DENIES CP/PRESSURE. DENIES SOB/DIFFICULTY BREATHING, ON RA. NG TUBE TO L. NARE, CONNECTED TO LOW INTERMITTENT SUCION. BOWEL SOUNDS HYPOACTIVE. SURGICAL ABD INCISION WITH SUTURES/SUSANNE IN PLACE, SURGICAL DSG/BINDER IN PLACE, CDI. IV TO L. WRIST, INTACT AND PATENT. BED IN LOWEST POSITION. CALL LIGHT WITHIN REACH. WILL CONTINUE TO MONITOR.
[2019-07-02 20:58] VITALS: BP 100/65
--- NOTE | 2019-07-03 03:40 | NUR ---
PT RESTING IN BED. RR EVEN AND UNLABORED. IN NO ACUTE DISTRESS. CALL LIGHT WITHIN REACH. BED IN LOWEST POSITION. WILL CONTINUE TO MONITOR.
[2019-07-03 06:04] VITALS: BP 96/56
[2019-07-03 06:45] LABS: BASOPHIL % 0.1 % (0-2); PLATELET COUNT 218 x10^3mcL (130-400); RED CELL DISTRIBUTION WIDTH 13.2 % (11.5-14.5)
[2019-07-03 06:56] LABS: CALCIUM 8.5 mg/dL (8.5-10.1); CARBON DIOXIDE 25.7 mmol/L (21-32); CHLORIDE SERUM 105 mmol/L (98-107); CREATININE SERUM 0.5 mg/dL (0.6-1.0); GFR1 > 60 mL/min; GLUCOSE SERUM 127 mg/dL (74-106); POTASSIUM SERUM 3.7 mmol/L (3.5-5.1); SODIUM SERUM 140 mmol/L (136-145)
--- NOTE | 2019-07-03 07:05 | NUR ---
NO NG TUBE OUTPUT THROUGHOUT THE NIGHT.
--- NOTE | 2019-07-03 07:17 | NUR ---
RECEIVED PT SITTING UP ON THE SIDE OF THE BED. NO ACUTE DISTRESS. AAOX4. RESP EVEN AND UNLABORED ON RA. NGT TO L NARE, CONNECTED TO LOW INTERMITTENT SUCTION. NO OUTPUT NOTED AT THIS TIME. PT C/O MILD ABD SURGICAL PAIN BUT TOLERABLE. ABDOMINAL SURGICAL DRESSING C/D/I, ABDOMINAL BINDER IN PLACE. IVF INFUSING TO L WRIST, NO REDNESS OR SWELLING NOTED. HOB ELEVATED. BED IN LOW POSITION, CALL LIGHT WITHIN REACH. WILL CONTINUE TO MONITOR.
[2019-07-03 09:09] VITALS: BP 96/58
--- NOTE | 2019-07-03 10:10 | NUR ---
NGT DISCONNECTED FROM WALL SUCTION AND CONNECTED TO PAREKH BAG DRAINING TO GRAVITY ORDERED. PT SITTING UP ON THE SIDE OF THE BED. NO ACUTE DISTRESS. AMBULATED IN HALLWAY EARLIER. NO GAS OR BM AT THIS TIME, DR. FRANZ AWARE. SON AT BEDSIDE. WILL CONTINUE TO MONITOR.
--- NOTE | 2019-07-03 12:49 | NUR ---
PT IN NO ACUTE DISTRESS. SLEEPING BUT EASILY AROUSABLE. RESP EVEN AND UNLABORED ON RA. NO PAIN NOTED. NGT TO L NARE CONNECTED TO PAREKH BAG, DRAINING TO GRAVITY. NO OUTPUT NOTED AT THIS TIME. IVF INFUSING, NO REDNESS OR SWELLING NOTED TO IV SITE. HOB ELEVATED. CALL LIGHT WITHIN REACH. WILL CONTINUE TO MONITOR.
--- NOTE | 2019-07-03 16:54 | NUR ---
NGT DC'D ORDERED. NO OUTPUT NOTED. PT TOLERATED WELL. WILL CONTINUE TO MONITOR.
[2019-07-03 17:05] VITALS: BP 109/64
--- NOTE | 2019-07-03 18:22 | NUR ---
PT RESTING IN BED. NO ACUTE DISTRESS. AAOX4. AMBULATED EARLIER IN THE HALLWAYS, GAIT STEADY. C/O MILD ABD SURGICAL PAIN BUT TOLERABLE. ABDOMINAL SURGICAL DRESSING C/D/I, ABDOMINAL BINDER IN PLACE. IVF INFUSING, NO REDNESS OR SWELLING. BED IN LOW POSITION, CALL LIGHT WITHIN REACH. WILL ENDORSE TO ONCOMING SHIFT.
--- NOTE | 2019-07-03 19:20 | NUR ---
RECEIVED PT FROM PREVIOUS SHIFT NURSE. PT AOX4, DENIES ALLRED/DIZZINESS. MED SURG PT. DENIES CP/PRESSURE. DENIES SOB/DIFFICULTY BREATHING, ON RA. ABD DSG IN PLACE, CDI WITH ABD BINDER IN PLACE. IV TO L. WRIST, INTACT AND PATENT. BED IN LOWEST POSITION. CALL LIGHT WITHIN REACH. WILL CONTINUE TO MONITOR.
[2019-07-03 19:42] VITALS: BP 99/62
--- NOTE | 2019-07-04 02:30 | NUR ---
PT RESTING IN BED. RR EVEN AND UNLABORED. IN NO ACUTE DISTRESS. CALL LIGHT WITHIN REACH. BED IN LOWEST POSITION. WILL CONTINUE TO MONITOR.
[2019-07-04 06:06] VITALS: BP 98/65
[2019-07-04 06:22] LABS: BASOPHIL % 0.2 % (0-2); PLATELET COUNT 222 x10^3mcL (130-400); RED CELL DISTRIBUTION WIDTH 13.3 % (11.5-14.5)
[2019-07-04 06:32] LABS: CALCIUM 8.3 mg/dL (8.5-10.1); CARBON DIOXIDE 25.3 mmol/L (21-32); CHLORIDE SERUM 104 mmol/L (98-107); CREATININE SERUM 0.5 mg/dL (0.6-1.0); GFR1 > 60 mL/min; GLUCOSE SERUM 103 mg/dL (74-106); POTASSIUM SERUM 3.4 mmol/L (3.5-5.1); SODIUM SERUM 140 mmol/L (136-145)
--- NOTE | 2019-07-04 07:00 | NUR ---
RECEIVED REPORT FROM GAYLA RN, PT IN NO ACUTE RESP DISTRESS
--- NOTE | 2019-07-04 07:10 | NUR ---
PT IN CHAIR, IN NO ACUTE RESP DISTRESS, NO FACIAL DROOP/SLURRED SPEECH, PERRLA, VERBAL, NO REDNESS/DRAINGE, RESP EVEN AND NON-LABORED, CHEST RISE SYMMETRICALLY, MEDSURG, ABD SOFT AND NON-TENDER TO TOUCH, BS ACTIVE X 4, ABD BINDER IN PLACE, DRESSING CDI, AMBULATORY, CONTINENT, BRP, PALP PULSES, CAP REFILL < 2 SECS, SKIN W.D.C, DENIED PAIN/DISCOMFORT/PRESSURE, DENIED N/V/D/DISSINESS, IV PATENT TO (L) F, INFUSING WELL, ALL NEEDS ADDRESSED AT THIS TIME, SAFETY PROTOCOL FOLLOWED, CONTINUE TO MONITOR
--- NOTE | 2019-07-04 08:12 | NUR ---
PT HAD BM X 1, SMALL, DARK BROWN, SOFT
--- NOTE | 2019-07-04 09:22 | NUR ---
PT RESTING IN BED, IN NO ACUTE RESP DISTRESS, AM MED GIVEN PER MD ORDER VIA EMAR, TAKEN WELL, NO SIDE EFFECT NOTED AT THIS TIME, ALL NEEDS ADDRESSED SAFETY PROTOCOL FOLLOWED, CAIN TO MONITOR
--- NOTE | 2019-07-04 10:46 | NUR ---
PT ENCOURAGED AMBULATORY, VERBALLY UNDERSTANDING, AMBULATED AROUND NURSE STATION, CONTINUE TO MONITOR
[2019-07-04 10:53] VITALS: BP 99/62
--- NOTE | 2019-07-04 11:24 | NUR ---
NEW ORDER OF CLEAR LIQUID DIET, COMPLAINT INSPECTOR MADE AWARE, PT AND SON AT BEDSIDE MADE AWARE
--- NOTE | 2019-07-04 11:28 | NUR ---
1. Recommend clear liquid diet post-surgery if medically appropriate/ tolerated. Discussed recommendations with BOSS DYER Mario.
--- NOTE | 2019-07-04 11:28 | NUR ---
Follow-up Nutrition Assessment: 241/A RAYMOND CHEN IA HR Dx: SBO PMHx: no significant Hx Labs: (07/04) K 3.4L, CREAT 0.5L, HGB 11.2L Meds: Colace, D 5%, zofran, reglan Diet: NPO for KUB, (06/30-): regular diet PO Intake: (07/02-) - pt. was NPO (06/30) dinner 60%, (06/29) breakfast 30%, lunch 40%, dinner 70% Weights: (06/19) 109#, (07/02) N/A as pt was not in the room, (07/04) Skin: abd incision with alisha Flaco: 21 I/Os: (07/03) 2360/402 (1955) Edema: none GI: Sx. on abd 07/02, hypoactive BS x4 Last BM: 07/02 RDN Visit (07/04): Patient was alert and oriented with son at bedside. Son speaks Ethiopian and helped with translation. Pt. said that she has a BM this morning at 8:20 am. Pt. denies any N/V. Per progress note (07/03) Patient is POD #1 Explore laparotomy and enterolysis. Patient diagnosed with loop bowel matted together causing SBO and adhesive band was also noted at the terminal ileum. Surgery performed by . Estimated Nutritional Needs Based on body weight 49 kg Energy: 5761-6252 kcal/d (25-30 kcal/kg) Protein: 49-59 g/d (1.0-1.2 g/kg) - preserve LBM Fluid: 3828-6590 ml/d (1 ml/kcal) or per doctor Nutrition Diagnosis 1. Inadequate oral intake related to SBO, mild ileus as evidenced by documented PO <75%, Pt. being NPO for procedures. (ongoing) 2. Altered GI function related to SBO as evidenced by KUB showing mild ileus, pt. undergoing ex-lap. (ex-lap completed, BM noted- improving) Intervention 1. Recommend clear liquid diet post-surgery if medically appropriate/ tolerated. Discussed recommendations with FE[employer] MILL SUPERVISOR Mario. Monitor/Evaluate Goal: Have pt meet at least 75% of estimated needs Monitor: PO intake, Labs, GI function F/U in 2-3 days as high risk 07/06-
--- NOTE | 2019-07-04 13:17 | NUR ---
SEWING MACHINE ATTACHMENT TESTER TABITHA THORNTON MADE AWARE OF PT POTASSIUM LEVEL AT 3.4 TODAY, NEW ORDER OBTAINED, PT MADE AWARE
--- NOTE | 2019-07-04 14:53 | NUR ---
PT EDUCATED A/B HOLDING PILLOW AGAIST ABD WOUND DURING COUGH TO REDUCE PAIN AND DEHISCENCE COMPLICATION, SON TRANSLATED, DEMONSTRATION GIVEN, VERBALLY UNDERSTANDING AND DEMONSTRATED BACK, WILL CONTINUE TO REENFORCE EDUCATION AND PRACTICE DURING HOSPITALIZATION AND PRIOR D/C HOME
[2019-07-04 16:40] VITALS: BP 109/69
--- NOTE | 2019-07-04 17:34 | NUR ---
PT RESTING IN BED, IN NO ACURE RESP DISTRESS, NO FACIAL DROOP/SLURRED SPEECH, VERBAL, NO REDNESS/DRAINAGE, RESP EVEN, NO COUGH/SOB, DENIED CP/PRESSURE/PAIN, DENIED N/V/D, ABD BINDER ON, DRESSING CDI, ABD SOFT, REPORTED X 2 SMALL BM TODAY, AMBULATORY, CONTINENT, IV PATENT AND INFUSING WELL, ALL NEEDS ADDRESSED AT THIS TIME, SAFETY PRECAUTION FOLLWED, WILL ENDORSE TO ONCOMING RN
--- NOTE | 2019-07-04 18:53 | NUR ---
REPORT GIVEN TO VINH MCKEON NIGHTSHIFT, PT IN NO ACUTE DISTRESS
--- NOTE | 2019-07-04 19:45 | NUR ---
AWAKE AND VERBALLY RESPONISVE. ABLE TO MAKE NEEDS KNOWN. SKIN WARM AND DRY TO TOUCH. RESPIRATION EVEN AND UNLABORED. DENIES ANY PAIN/DISCOMFORT AT THIS TIME.IV ACCESS AT THE LEFT WRIST INTACT AND PATNET WITH IVF D5 1/2NS AT 40ML/HR INFUSING WELL. NO REDNESS/SWELLING NOTED AT THE IV SITE. WILL CONTINUE TO MONITOR.
[2019-07-04 21:57] VITALS: BP 100/60
--- NOTE | 2019-07-05 | NUR ---
EYES CLOSED, NO FACIAL GRIMACING NOTED. RESPIRATION EVEN AND UNLABORED. CALL LIGHT WITHIN REACH. BED IN LOWEST POSITION.
--- NOTE | 2019-07-05 05:21 | NUR ---
CONTINUES ON IVF D5 1/2NS AT 40ML/HR TOLERATING WELL. ABLE TO REPOSITION SELF IN BED. ALL NEEDS ATTENDED.
[2019-07-05 06:40] VITALS: BP 107/64
--- NOTE | 2019-07-05 07:20 | NUR ---
RECEIVED PT FROM ABBEY RN, PT IN NO ACUTE DISTRESS
--- NOTE | 2019-07-05 07:42 | NUR ---
PT IN BED, AXOX4, VERBAL, ABLE TO MAKE NEEDS KNOWN, CALM AND COOPERATIVE, PERRLA, NO REDNESS/DRAINAGE, NO SOB/COUGH, MEDSURG, DENIED CP/PRESSURE/ALLRED, DENIED N/V/D, ABD BINDER APPLIED, ABD SOFT AND ACTIVE, DRESSING CDI, AMBULATORY, CONTINENT, PALP PULSES, CAP REFILL < 2 SECS, SKIN C/W/D, ALL NEEDS ADDRESSED AT THIS TIME, SAFETY PROTOCOL FOLLWED, CONTINUE TO MONITOR
[2019-07-05 07:51] LABS: CALCIUM 7.8 mg/dL (8.5-10.1); CARBON DIOXIDE 25.3 mmol/L (21-32); CHLORIDE SERUM 106 mmol/L (98-107); CREATININE SERUM 0.5 mg/dL (0.6-1.0); GFR1 > 60 mL/min; GLUCOSE SERUM 103 mg/dL (74-106); POTASSIUM SERUM 3.2 mmol/L (3.5-5.1); SODIUM SERUM 141 mmol/L (136-145)
[2019-07-05 08:20] LABS: BASOPHIL % 0.4 % (0-2); PLATELET COUNT 193 x10^3mcL (130-400); RED CELL DISTRIBUTION WIDTH 13.2 % (11.5-14.5)
--- NOTE | 2019-07-05 08:42 | NUR ---
PT IN NO ACUTE DISTRESS, TOLERATED BREAKFAST WELL, AM MED GIVEN PER MD ORDER VIA EMAR, TAKEN WELL, NO SIDE EFFECT NOTED AT THIS TIME, PT REPORTED BM X 1, MEDIUM, SOFT, DARK YELLOW COLOR, CONTINUE TO MONITOR
[2019-07-05 09:07] VITALS: BP 104/69
--- NOTE | 2019-07-05 10:21 | NUR ---
ANJEL THORNTON MADE AWARE OF K LEVEL 3.2
--- NOTE | 2019-07-05 12:46 | NUR ---
RECEIVED NEW ORDER FROM TABITHA HOBBS, PT MADE AWARE AND TAKEN WELL, NO ASE NOTED AT THIS TIME, CAIN TO MONITOR
--- NOTE | 2019-07-05 14:32 | NUR ---
PT REPORTED DISCOMFORT IN STOMACH S/P GAS, BS ACTIVE X 4, ABD SOFT AND NON-TENDER TO TOUCH, PT ENCOURAGED TO AMBULATE, REPOTED BM X 1, SMALL, DARK YELLOW, SOFT, FAMILY AT BEDSIDE TRANSLATED, STUDIO MANAGER TABITHA THORNTON MADE AWARE, NEW ORDER OBTAINED, PT AND FAMILY MADE AWARE, CONTINUE TO MONITOR
--- NOTE | 2019-07-05 16:14 | NUR ---
PT REPORTED BM X 1, SMALL, SOFT, DARK YELLOW. PT AMBULATORY ALONG THE HALLWAY. REPORTED DISCOMFORT SUBSIDED
[2019-07-05 17:34] VITALS: BP 110/73
--- NOTE | 2019-07-05 17:40 | NUR ---
PT RESTING IN BED, FAMILY AT BEDSIDE, NO ACURE RESP DISTRESS, NO FACIAL DROOP/SLURRED SPEECH, VERBAL, NO REDNESS/DRAINAGE, RESP EVEN, NO COUGH/SOB, DENIED CP/PRESSURE/PAIN, DENIED N/V/D, ABD BINDER ON, DRESSING CDI, ABD SOFT, REPORTED MULTIPLE SMALL BM TODAY, AMBULATORY, CONTINENT, IV PATENT AND INFUSING WELL, ALL NEEDS ADDRESSED AT THIS TIME, SAFETY PRECAUTION FOLLWED, WILL ENDORSE TO ONCOMING RN
--- NOTE | 2019-07-05 19:56 | NUR ---
AWAKE AND VERBALLY RESPONSIVE. ABLE TO MAKE NEEDS KNOWN. SKIN WARM AND DRY TO TOUCH WITH ABDOMINAL INCISSION SUPPORTED WITH ABDOMINAL BINDER. DENIES ANY PAIN/DISCOMFORT AT THIS TIME. ORAL FLUIDS WELL TOLERATD. NO NAUSEA/VOMITING NOTED AT THIS TIME. WILL CONTINUE TO MONITOR.
[2019-07-05 22:09] VITALS: BP 104/63
--- NOTE | 2019-07-05 23:32 | NUR ---
C.O HEADACHE ON SCALE 3/10. TYLENOL 650MG PO PRN MEDICATION. REPOSITIONED SELF IN BED.
--- NOTE | 2019-07-06 00:30 | NUR ---
FERCHO CLAIMED TOTAL RELIEF, PAIN LEVEL 0/10. PLACED CALL LIGHT WITHIN REACH. BED LOCKED AND IN LOWEST POSITION FOR SAFETY.
--- NOTE | 2019-07-06 05:29 | NUR ---
AMBULATED TO BATHROOM FOR PERSONAL NEEDS. HAD BM X4 WITH SOFT STOOL . KEPT CLEAN AND DRY. ALL NEEDS ATTENDED.
[2019-07-06 06:05] VITALS: BP 167/62
[2019-07-06 06:09] VITALS: BP 147/62
--- NOTE | 2019-07-06 07:35 | NUR ---
PATIENT IS SITTING UP AT BEDSIDE. PATIENT DENIES PAIN. PATIENT STATES SHE HAD A BM THIS MORNING. PATIENT IS AMBULATORY, STEADY GAIT NOTED. ABDOMINAL INCISION WITH SUTURES/SUSANNE & DRESSING APPLIED, CDI & NO DRAINAGED. ABDOMINAL BINDER IN PLACE. PATIENT DENIES PAIN. D5 1/2 NS INFUSING TO LEFT WRIST AT 40ML/HR, IV SITE CDI & PATENT, NO S/S OF INFILTRATION. CALL LIGHT WITHIN REACH, BED IN LOW POSITION, WILL CONTINUE TO MONITOR FOR CHANGES.
[2019-07-06 08:59] VITALS: BP 100/76
--- NOTE | 2019-07-06 09:00 | NUR ---
DR IRAHETA AWARE PATIENT K WAS 3.2. WILL F/U WITH ANY NEW ORDERS.
--- NOTE | 2019-07-06 09:17 | NUR ---
PATIENT IS UP AND AMBULATING HALLWAYS, STEADY GAIT NOTED. PATIENT DENIES PAIN. NO ACUTE DISTRESS NOTED. WILL CONTINUE TO MONITOR PATIENT.
[2019-07-06 12:48] VITALS: BP 100/76
--- NOTE | 2019-07-06 13:30 | NUR ---
PATIENT IS TO BE DISCHARGE HOME TODAY, PATIENT AWAITING FOR RIDE. PATIENT RECEIVED COPY OF D/C INSTRUCTIONS, PATIENT UNDERSTANDS AND AGREES WITH D/C INSTRUCTIONS & POC, INCLUDING MEDICATIONS & FOLLOW UP WITH PCP & DR IRAHETA. PATIENT AND SON VERBALIZE UNDERSTANDING. LINDA AGUILAR TRANSLATED D/C INSTRUCTIONS.
--- NOTE | 2019-07-06 15:05 | NUR ---
ARMBAND REMOVED. IV TO LEFT WRIST REMOVED. PATIENT TAKEN DOWN VIA WHEELCHAIR BY TWISTER TENDER PAPER. ALL QUESTIONS AND CONCERNS ADDRESSED.
== END 2019-07-06 15:05 | disposition home or self-care (01) | DRG 710 ==
LOC: ED 09:46 → DU 12:00 → MU 12:00 → DU 15:46 → MU 06-20 16:17
PROVIDERS: Internal Medicine; Specialist; Surgery; ADMIT Internal Medicine
PROC: 0DN80ZZ Release Small Intestine, Open Approach (ICD-10-PCS; principal; 2019-07-02 10:30)
DX: A41.9 Sepsis, unspecified organism (principal); N17.0 Acute kidney failure with tubular necrosis; K56.51 Intestinal adhesions [bands], with partial obstruction; E86.0 Dehydration; E87.6 Hypokalemia; R73.9 Hyperglycemia, unspecified; Z68.1 Body mass index [BMI] 19.9 or less, adult
CPT/HCPCS: 36600; 82962; 83880; 84439; A9698; C9113; G0378; J0330; J1170; J1885; J1956; J2250; J2405; J2543; J2704; J2710; J3010; J3480; J3490; J7030; J7040; J7042; J7060; J7070; J7120; Q0092; Q9967